=== PATIENT | female | born 1965 | race Caucasian/White ===

== ENCOUNTER → 2021-06-13 10:43 | Outpatient (CLI) | payer OTHER, SELFPAY ==
--- NOTE | ~2021-06-13 | DEXA_ITS ---
Bone Density Report Name: AVERY JOHNSON Age: 56 Sex: Female Ethnicity: White Date of : 1965 Indication: screening for osteoporosis; inflammatory bowel disease; asthma or emphysema; Referring Provider: ANGEL FAROOQ Study: Bone densitometry was performed. Exam Date: June 13, 2021 Accession number: [id number] Bone Density: Region BMD T-score Z-score Classification AP Spine (L1-L4) 0.946 -0.9 0.1 Normal Femoral Neck (Left) 0.670 -1.6 -0.6 Osteopenia Total Hip (Left) 0.893 -0.4 0.2 Normal Femoral Neck (Right) 0.631 -2.0 -1.0 Osteopenia Total Hip (Right) 0.822 -1.0 -0.4 Normal Total Hip Mean 0.858 -0.7 -0.1 Normal World Health Organization criteria for BMD impression classify patients as: Normal (T-score at or above -1.0), Osteopenia (T-score between -1.0 and -2.5), or Osteoporosis (T-score at or below -2.5). 10-year Fracture Risk: FRAX not reported because: Premenopausal woman Clinical Information Provided by Patient: Has used the following medications: Vitamin D Has the following medical conditions: Asthma or Emphysema, Inflammatory bowel diseases Patient maximum height was 62 No regular weight bearing exercise Drinks caffeinated beverages Onset of menses at age 18 Premenopausal Number of children 1 Impression: The patient's bone mass is within expected range for age, gender and ethnicity. Discussion: BONE DENSITY IS WITHIN EXPECTED LIMITS FOR AGE, SEX AND RACE. Bone density is within expected limits for age, sex and race at all sites measured. The patient should follow a healthful lifestyle (good nutrition with adequate calcium and vitamin D, and appropriate weight-bearing exercise). Follow-Up: Consider repeating this study in 2 to 3 years to reassess this patient's status, or sooner if there is some new clinical indication. Reported by: RAFAEL on 06/13/2021 11:02:00 AM. Reviewed, dictated and finalized at location ADante BESS
== END ==
PROVIDERS: Visit Provider Emergency Medicine
DX: Z78.0 Asymptomatic menopausal state (principal); M85.851 Other specified disorders of bone density and structure, right thigh; M85.852 Other specified disorders of bone density and structure, left thigh
CPT/HCPCS: 77080

== ENCOUNTER → 2021-08-10 11:05 | Outpatient (CLI) | payer OTHER, SELFPAY ==
--- NOTE | ~2021-08-10 | US_ITS ---
US abdomen complete EXAMINATION: US Abdomen Complete INDICATION: Liver disease. Abnormal liver enzymes. PROCEDURE: Realtime High Resolution abdomen ultrasound. COMPARISON: No prior studies for comparison FINDINGS: Gallbladder surgically absent. Common bile duct measures 5 mm. Liver echotexture is within normal limits. There is a 4.6 cm cyst. Pancreas within normal limits. Pa ncreatic tail is obscured by bowel gas. Spleen is unremarkeable. Renal echotexture is within normal limits bilaterally without hydronephrosis, contour deforming mass or renal stone. Right kidney measur es 8.7 cm. Left kidney measures 9 cm. Visualized aspects of the aorta are within normal limits. IVC not visualized. Portal vein is patent. IMPRESSION: 1: Liver cyst measuring 4.6 cm maximum dimension. Otherwise, unremarkable abdominal ultrasound. Reviewed, dictated and finalized at location B. IMPRESSION: 1: Liver cyst measuring 4.6 cm maximum dimension. Otherwise, unremarkable abdom inal ultrasound.
== END ==
PROVIDERS: PCP Emergency Medicine; Visit Provider Emergency Medicine
DX: K76.9 Liver disease, unspecified (principal)
CPT/HCPCS: 76700

== ENCOUNTER 2021-08-28 11:07 | Outpatient (CLI) | payer OTHER, SELFPAY ==
--- NOTE | 2021-09-03 20:31 | WPDSLEEPSTUD ---
Sleep Study Date of Study: 08/28/21 Ordering Provider: Lin Morgan MD Interpreting Physician: Lolis Correia DO Sleep Study Type: Split Polysomnogram Height: 1.55 m Weight: 80.286 kg Body Mass Index: 33.4 Neck Circumference (inches): 15 Ogema: 14 Reason for Sleep Study The patient has known DANIELLE and COPD. She had a recent nocturnal oximetry that showed an JAYY over 50 with desaturation down to 80%. Sleep History The patient is a 56-year-old female with COPD, asthma, IBS, osteoporosis and previously diagnosed sleep apnea that had a split study ordered by her drapery worker. The patient used to be on CPAP and supplemental oxygen but she is no longer using either. The patient denies being awakened from sleep due to shortness of breath. She occasionally awakens at night with heartburn, belching or cough. She frequently snores and it is constantly loud enough that others complain. She frequently has trouble sleeping when she has a cold. She denies waking up gasping for air throughout the night. She frequently has breathing problems at night observed by herself or others. She rarely sweats excessively at night. She denies having heart palpitations or irregular heart beats during the night. She frequently falls asleep during the day but never while driving. She denies cataplexy. She frequently has trouble at school or work due to sleepiness. She rarely feels unable to move when waking up or falling asleep. She occasionally has vivid dream like scenes upon awakening or falling asleep. She rarely has nightmares. She occasionally remembers her dreams. She rarely has thoughts racing through her mind. She rarely feels sad, depressed or anxious. She occasionally has muscular tension. She rarely notices parts of her body jerks. She rarely kicks during the night. She frequently has crawling aching feeling in her legs and occasionally has leg pain during the night. She denies grinding her teeth during sleep and awakening with morning jaw pain. She is frequently bothered by pain during the day and frequently awakened by pain during the night. She constantly wakes up feeling stiff in the morning and frequently wakes up with Sore a lucia muscles. She constantly wakes up with pain in the neck, spine and other joints. Is She goes to bed at 9:00 p.m. on weekdays and 11:00 p.m. on the weekends. It takes her 15-20 minutes to fall asleep. She wakes up twice throughout the night. She is able to fall back asleep within 20 minutes. She wakes up between 9 and 10:00 a.m. on weekdays and 10:00 a.m. on the weekend. She typically gets 7-10 hours of sleep per night. She will stay in bed for 5 minutes after waking up in the morning. She currently lives with her . She does not consume any caffeinated beverages within 2 hours of bedtime. She does not engage in physical exercise before bedtime. She will watch television before falling asleep. She does not take naps in the afternoon or the evening. She will drink 2 caffeinated beverages per day. She will drink 1 alcoholic beverage per day. She denies tobacco and recreational drug use. [facility] Past Medical History Medical History Arthritis Asthma IBS (irritable bowel syndrome) Left knee DJD Osteoporosis Right knee DJD Surgical History Surgical History Hx of section 1989 Social History Social History Substance use: never Gender identity (if verbalized by the patient): Female Medications Home Medications Medication Instructions Recorded Confirmed Type cetirizine 10 mg capsule 10 mg PO DAILY PRN 04/26/21 08/30/21 History montelukast 10 mg tablet 10 mg PO DAILY 04/26/21 08/30/21 History salmeterol 50 mcg/dose blister 1 inh INHALATION Q12H 04/26/21 08/30/21 History powder for inhalation
[2021-09-04 14:18] VITALS: BMI 33.4
== END 2021-08-29 07:06 | disposition home or self-care (01) ==
LOC: ANHCSM 11:08
PROVIDERS: PCP Emergency Medicine; Visit Provider Internal Medicine Critical Care Medicine
DX: G47.33 Obstructive sleep apnea (adult) (pediatric) (principal)
CPT/HCPCS: 95811

== ENCOUNTER 2022-02-15 12:24 | Outpatient (CLI) | payer OTHER, SELFPAY ==
--- NOTE | ~2022-02-15 | US_ITS ---
US thyroid INDICATION: Thyroiditis TECHNIQUE: Real-time sonographic images of the thyroid gland were obtained. COMPARISON: No prior studies for comparison. FINDINGS: The right thyroid lobe measures 4.9 x 1.7 x 1.3 cm. The left thyroid lobe measures 4.4 x 1 .5 x 1.3 cm. In the left lobe there is a solid hypoechoic, wider than tall smoothly marginated mass w ithout internal calcifications, measuring 10 x 8 x 5 mm, TR 4. No discrete masses are identified in t he right thyroid lobe. IMPRESSION: 1. Left thyroid mass measuring 1 cm maximum dimension, TR 4. Recommend follow-up ultrasound in 12 mo nths. Reviewed, dictated and finalized at location A. IMPRESSION: 1. Left thyroid mass measuring 1 cm maximum dimension, TR 4. Recommend follow- up ultrasound in 12 months.
== END 2022-02-15 12:25 | disposition home or self-care (01) ==
PROVIDERS: PCP Family Medicine; Visit Provider Family Medicine
DX: E06.3 Autoimmune thyroiditis (principal)
CPT/HCPCS: 76536

== ENCOUNTER 2022-02-28 09:19 | Outpatient (CLI) | payer OTHER, SELFPAY ==
--- NOTE | ~2022-02-28 | XR_ITS ---
MODIFIED ESOPHAGRAM HISTORY: Dysphagia. TECHNIQUE: Modified barium esophagram was performed on 02/28/2022. I administered fluoroscopy and perf ormed the exam with speech pathologist. Patient was seated for lateral fluoroscopic imaging for yohannes stion of thin liquids, pudding, solids and quantified amounts, followed by thin liquids in uncontroll ed amounts. This was recorded on tape. A single fluoroscopic spot image was also recorded. The DAP fo r this procedure was 1.14 Gycm2. The amount of fluoroscopy time used during this procedure was 1.5 mi nutes. FINDINGS: Oral stage: Adequate function. Pharyngeal stage: Adequate function. Cervical/esophageal stage: Adequate function. IMPRESSION: Patient tolerated regular consistency oral feedings in the upright position. Please asif elate with speech pathologist findings and specific feeding recommendations. Reviewed, dictated and finalized at location A. IMPRESSION: Patient tolerated regular consistency oral feedings in the upright position. Please correlate with speech pathologist findings and specific feedi ng recommendations.
--- NOTE | 2022-02-28 10:48 | REHSTMBS ---
Assessment and note entered by Lin Lugo, SAMPLE SAWYER Modified Barium Swallow Evaluation Feeding Type Recommended Oral Food Consistency Regular, Level 7 Liquid Consistency Thin (0) ST Clinical Summary Patient was seen for a Modified Barium Swallow study to assess her risk for aspiration. She reported that her flying ii instructor referred her for this study because she has lung issues and had just completed a test for her thyroid. Patient does report a history of GERD, and stated the main swallowing issue she has is swallowing chunks of ice cream (due to the thickness of the ice cream). Today the patient was presented with uncontrolled thin liquid per cup, semi-solid contrast medium per spoon, and cracker and fruit both coated with the semi-solid mixture. She exhibited the need to swallow each consistency two times to clear oral cavity however no significant pharyngeal issues were noted including no significant vallecular residue, no residue after both swallows were completed, and no risk for aspiration at the level of the airway entrance. Patient may remain on current diet. She was instructed to employ the following safe swallowing strategies: small bites and sips, multiple swallows, alternate solids with liquids, add moisture to dry foods such as adding gravy to dry meats. She was also instructed in the use of head flexion (chin tuck) to assist with movement of material through the pharynx. No additional Speech Therapy is indicated. Thank you for this referral.
== END 2022-02-28 09:20 | disposition home or self-care (01) ==
PROVIDERS: PCP Family Medicine; Visit Provider Internal Medicine Critical Care Medicine
DX: R13.10 Dysphagia, unspecified (principal); R06.02 Shortness of breath
CPT/HCPCS: 92611

== ENCOUNTER 2022-09-06 07:48 | Outpatient (CLI) | payer OTHER, SELFPAY ==
--- NOTE | 2022-09-08 11:23 | WPDPFTINT ---
PFT Procedure Performed PFT Procedure Performed Spirometry with Pre/Post Bronchodilator Plethysmography (Lung Vol) Diffusing Cap (DLCO) Flow Vol Loop PFT Interpretation DOS: 09/06/2022 REQUESTING: Lin Morgan MD REASON FOR TESTING: COPD PULMONARY FUNCTION TESTS Results are reliable and reproducible. Spirometry: pre bronchodilator FEV1 is 1.69 L, 71%, mildly reduced. Pre bronchodilator FVC is 2.22 L, 75%, mildly reduced. FEV1/ FVC ratio is 76%, normal. After bronchodilator, there is a 7% increase in the FEV1, 1.81 L, 76% predicted now in the normal range. There is a 1% increase in FVC, 2.24 L, 75%, still mildly reduced. FEF 25%- 75% is 1.36 L, lower limit of normal, 58%. After bronchodilator there is a 43% increase, 1.94 L, 83% predicted. This is significant. Lung volumes: Total lung capacity is 3.28 L, 71%, mild restriction. Residual volume is 0.93 L, 54%, below normal. RV/TLC is 28%, lower limit of normal. Airway resistance is 2.60, 156%. Diffusion: DLCO 19.4, 93%, normal. DLCO /VA is 6.74, 145%, above normal. Flow volume loop: Normal. IMPRESSION: This study shows a mild restrictive ventilatory impairment, more significant in the small airways with good response to bronchodilator in the small airways. Normal diffusion which over corrects for alveolar volume. Compared to an outside study on 07/13/2019, results are similar. She had a mild restrictive impairment. Lin Morgan MD
== END 2022-09-06 07:49 | disposition home or self-care (01) ==
PROVIDERS: PCP Family Medicine; Visit Provider Internal Medicine Critical Care Medicine
DX: J44.9 Chronic obstructive pulmonary disease, unspecified (principal)
CPT/HCPCS: 94060; 94726; 94729

== ENCOUNTER 2022-10-08 09:34 | Outpatient (CLI) | payer OTHER, SELFPAY ==
[2022-10-08 10:11] LABS: Basophils Absolute Auto 0.1 K/mm3 (0.0-0.1); Basophils Percent Auto 1.3 % (0.2-1.2); Eosinophils Absolute Auto 0.3 K/mm3 (0-0.3); Eosinophils Percent Auto 3.7 % (0-4.4); Hematocrit 43.9 % (37.0-47.0); Hemoglobin 14.1 g/dL (12.0-15.0); Immature Granulocyte Absolute 0.02 K/mm3 (0.00-0.031); Immature Granulocyte Percent A 0.3 % (0-0.5); Lymphocytes Absolute Auto 1.96 K/mm3 (0.9-3.2); Lymphocytes Percent Auto 29.2 % (18.3-44.2); Mean Corpuscular HGB Conc 32.1 g/dl (32-36); Mean Corpuscular Hemoglobin 30.5 pg (26-34); Mean Corpuscular Volume 94.8 fl (80-100); Mean Platelet Volume 8.4 fl (7.4-10.4); Monocytes Absolute Auto 0.7 K/mm3 (0.1-0.6); Monocytes Percent Auto 9.8 % (2.6-8.5); Neutrophils Absolute Auto 3.7 K/mm3 (1.3-6.7); Neutrophils Percent Auto 55.7 % (45.5-73.1); Platelet Count Result 339 k/mm3 (150-375); Red Blood Count 4.63 M/mm3 (4.2-5.4); Red Cell Distribution Width 13.2 % (11.5-14.5); White Blood Count 6.7 K/mm3 (4.5-10.0)
[2022-10-08 10:19] LABS: Anion Gap 4 mmol/L (8-16); Blood Urea Nitrogen 14 mg/dL (7-17); Calcium 9.1 mg/dL (8.4-10.2); Carbon Dioxide 34 mmol/L (22-30); Chloride 102 mmol/L (98-107); Estimated Glomerular Filt Rate > 60; Glucose 99 mg/dL (65-110); Potassium 3.8 mmol/L (3.4-5.0); Sodium 140 mmol/L (137-145)
[2022-10-08 10:20] LABS: Appearance Urine Clear (Clear); Bacteria Urine None Seen /hpf; Bilirubin Urine Negative (Negative); Blood Urine 1+ (Negative); Color Urine Yellow (Yellow); Glucose Urine UA Negative (Negative); Ketones Urine Negative (Negative); Leukocyte Esterase Ur Trace LEU/UL (Negative); Nitrate Urine Negative (Negative); Non Pathogenic Casts 0-2; Protein Urine Negative (Negative); Specific Grav Ur 1.013 (1.001-1.035); Squamous Epithelial Cell Urine Occasional /hpf (Few); Urobilinogen Urine 0.2 mg/dL (<2.0); WBC Urine 0-5 /hpf
--- NOTE | 2022-10-08 10:21 | ECG_ITS ---
Measurements Intervals Buena Rate: 76 P: 51 MI: 166 QRS: 28 QRSD: 102 T: 38 QT: 382 QTc: 430 Interpretive Statements SINUS RHYTHM POSSIBLE LEFT ATRIAL ENLARGEMENT BASELINE WANDER- I, II, III, AVF BORDERLINE ECG NO PREVIOUS ECG AVAILABLE FOR COMPARISON Electronically Signed On 10-08-2022 10:48:09 CDT by Jay Kitchen D.O.
[2022-10-08 11:05] LABS: Add Urine Microscopic? YES
== END 2022-10-08 09:35 | disposition home or self-care (01) ==
LOC: ANHLAB 09:36
PROVIDERS: PCP Family Medicine; Visit Provider Orthopaedic Surgery
DX: M17.11 Unilateral primary osteoarthritis, right knee (principal); J44.9 Chronic obstructive pulmonary disease, unspecified; I10 Essential (primary) hypertension; R94.31 Abnormal electrocardiogram [ECG] [EKG]
CPT/HCPCS: 36415; 80048; 81001; 85025; 93005

== ENCOUNTER → 2022-11-27 10:21 | Outpatient (CLI) | payer OTHER, SELFPAY ==
--- NOTE | ~2022-11-27 | MM_ITS ---
EXAMINATION: MM screening mounika BI w azucena HISTORY: Screening mammogram TECHNIQUE: Craniocaudal and mediolateral oblique 3-D tomosynthesis images were obtained and synthetic 2-D images were generated. CAD analysis was submitted and interpreted. COMPARISON: No prior mammogram is available for comparison at this institution. BREAST PARENCHYMAL COMPOSITION: There are scattered areas of fibroglandular density. FINDINGS: RIGHT BREAST: There is focal asymmetry in the middle third of the upper outer quadrant of the breast. . LEFT BREAST: No suspicious mass, calcification, or architectural distortion are identified to suggest malignancy. IMPRESSION: 1. Right breast focal asymmetry which may represent the patient's baseline however no comparison is c urrently available. 2. Comparison with prior mammograms is necessary. BI-RADS Category 0: Incomplete: Needs comparison with prior mammograms. Reviewed, dictated and finalized at location A. IMPRESSION: 1. Right breast focal asymmetry which may represent the patient's baseline baird manjit no comparison is currently available. 2. Comparison with prior mammograms is necessary. BI-RADS Category 0: Incomplete: Needs comparison with prior mammograms.
== END ==
PROVIDERS: PCP Obstetrics & Gynecology; Visit Provider Nurse Practitioner
DX: Z12.31 Encounter for screening mammogram for malignant neoplasm of breast (principal); R92.8 Other abnormal and inconclusive findings on diagnostic imaging of breast
CPT/HCPCS: 77063; 77067

== ENCOUNTER 2023-01-08 07:19 | Outpatient (CLI) | payer OTHER, SELFPAY ==
[2023-01-08 08:54] LABS: Basophils Absolute Auto 0.1 K/mm3 (0.0-0.1); Basophils Percent Auto 1.3 % (0.2-1.2); Eosinophils Absolute Auto 0.2 K/mm3 (0-0.3); Eosinophils Percent Auto 2.1 % (0-4.4); Hematocrit 43.8 % (37.0-47.0); Hemoglobin 14.2 g/dL (12.0-15.0); Immature Granulocyte Absolute 0.04 K/mm3 (0.00-0.031); Immature Granulocyte Percent A 0.4 % (0-0.5); Lymphocytes Absolute Auto 2.09 K/mm3 (0.9-3.2); Lymphocytes Percent Auto 22.4 % (18.3-44.2); Mean Corpuscular HGB Conc 32.4 g/dl (32-36); Mean Corpuscular Hemoglobin 31.1 pg (26-34); Mean Corpuscular Volume 96.1 fl (80-100); Mean Platelet Volume 8.3 fl (7.4-10.4); Monocytes Absolute Auto 0.9 K/mm3 (0.1-0.6); Neutrophils Percent Auto 63.8 % (45.5-73.1); Platelet Count Result 356 k/mm3 (150-375); Red Blood Count 4.56 M/mm3 (4.2-5.4); White Blood Count 9.3 K/mm3 (4.5-10.0)
[2023-01-08 08:59] LABS: Appearance Urine Clear (Clear); Bilirubin Urine Negative (Negative); Blood Urine Negative (Negative); Color Urine Dark Yellow (Yellow); Glucose Urine UA Negative (Negative); Ketones Urine Negative (Negative); Leukocyte Esterase Ur Negative LEU/UL (Negative); Nitrate Urine Negative (Negative); Protein Urine Negative (Negative); Specific Grav Ur 1.019 (1.001-1.035); Urobilinogen Urine 0.2 mg/dL (<2.0)
[2023-01-08 09:05] LABS: INR 0.9; Prothrombin Time 12.9 Seconds (11.1-14.7)
[2023-01-08 09:06] LABS: Partial Thromboplastin Time 27.6 SECONDS (22.3-36.8); Urine Cotinine NEGATIVE
[2023-01-08 09:11] LABS: Albumin Level 4.5 g/dL (3.5-5.1); Anion Gap 9 mmol/L (8-16); Blood Urea Nitrogen 14 mg/dL (7-17); Calcium 9.6 mg/dL (8.4-10.2); Carbon Dioxide 32 mmol/L (22-30); Chloride 100 mmol/L (98-107); Estimated Glomerular Filt Rate > 60; Glucose 102 mg/dL (65-110); Potassium 4.6 mmol/L (3.4-5.0); Sodium 141 mmol/L (137-145)
[2023-01-08 09:16] LABS: Hemoglobin A1C 5.3 % (<5.7)
[2023-01-08 09:30] LABS: Add Urine Microscopic? NO
== END 2023-01-08 07:20 | disposition home or self-care (01) ==
LOC: ANHSURGERY 07:24
PROVIDERS: PCP Family Medicine; Visit Provider Orthopaedic Surgery
DX: Z01.812 Encounter for preprocedural laboratory examination (principal); M17.11 Unilateral primary osteoarthritis, right knee
CPT/HCPCS: 80048; 80307; 81003; 82040; 83036; 85025; 85610; 85730; 87081

== ENCOUNTER 2023-01-22 01:10 | Day surgery (SDC) | payer OTHER, SELFPAY ==
--- NOTE | 2023-01-08 07:25 | PC.NURSE ---
PRE-OP INSTRUCTIONS, PLEASE READ CAREFULLY Report to the Outpatient Waiting Room, entrance under the green pavilion located off [facility], at time _0830_ on date _01/22/23_. Planned Procedure Time: _1030_. PACK A SMALL OVERNIGHT BAG AND LEAVE IN THE CAR ALONG WITH YOUR WALKER Time changes happen often and if your time is changed the preop area will call you the afternoon before. - You and your visitor will be asked to self-screen and do not enter if you have any COVID symptoms. - A mask is optional within the hospital at this time. -VISITING HOURS 8AM-8PM Patients may have clear liquids (water, carbonated beverages, clear teas, apple juice) until 3 hours prior to surgery (0730AM) with a maximum of 20 ounces. - No food from midnight until time of surgery Take the following medications with a SIP of water the morning of surgery: _NONE_ DO NOT STOP ANY OF YOUR OTHER PRESCRIPTION MEDICATIONS PRIOR TO SURGERY ?EXCEPT THE FOLLOWING Medications to discontinue per ANESTHESIA - _MULTIVITAMIN, PROBIOTIC AND SUPPLEMENTS 3 DAYS PRIOR TO SURGERY, Date to take last dose 01/18/23_ Please no make-up, nail sudanese, hairspray, perfume, deodorant, or body powder the day of surgery. No jewelry (including any body piercings) or valuables the day of surgery, leave them at home. Please take a shower or bath the night before, or the morning of, surgery with an antibacterial soap. Wear comfortable, loose fitting clothing. Children are encouraged to wear pajamas. - Jewelry must be removed prior to entering the operating room. Rings and piercings that are not removed may be cut off. - The hospital will not accept responsibility for valuables. - Please leave all valuables, including medications, at home the day of surgery. If you are going home after surgery, a licensed hazmat tanker driver must drive you home. - NO public transportation without another adult if you receive anesthesia. - We recommend that an adult stay with you for 24 hours following discharge. - We also recommend that you do not drive, make important decision, drink alcoholic beverages, or take any drugs that were not prescribed by your health care provider for at least 24 hours after your discharge time. Follow any additional instructions given to you from your surgeon. If you or anyone in your household have experienced Covid symptoms in the past week, please notify your surgeon or the nurse liaison at the phone number below for possible testing. Instructions given to _PATIENT_and asked if any additional questions and then verbalized understanding. Patient advised to call surgeon office or pre surgery nurse liaison [phone] if any additional questions.
[2023-01-08 08:02] VITALS: BP 146/86; PULSE 76; RESP 18; TEMP 36.9; O2SAT 98; BMI 35.1
[2023-01-22] VITALS (14 sets, daily range): BP systolic 110–135; BP diastolic 56–76; PULSE 69–94; RESP 12–20; TEMP 36.1–37.1; O2SAT 91–99
--- NOTE | ~2023-01-22 | XR_ITS ---
EXAMINATION: [id number] DATE: 01/22/2023 13:46 INDICATION: Postoperative evaluation following right total knee arthroplasty. TECHNIQUE: Anteroposterior and lateral views of the right knee were obtained. COMPARISON: 10/03/2022 FINDINGS: Right total knee arthroplasty without patellar resurfacing appears well seated and in near anatomic a lignment. No fractures identified. Skin brooke anterior to the knee. Expected postoperative subcuta neous and intra-articular gas. IMPRESSION: 1. Right total knee arthroplasty, negative for postoperative purposes. Reviewed, dictated and finalized at location A.
--- NOTE | 2023-01-22 07:23 | WPDHPUPDATE1 ---
History and Physical Update Update Date/Time: 01/22/23 07:23 History and Physical has been reviewed, including an updated exam of the patient. There are NO changes in the patient's condition. Risks, benefits, and alternatives have been discussed and questions answered. Patient agrees to proceed with procedure.
[2023-01-22] MEDS: ACETAMINOPHEN 500 MG TABLET 1000 MG PO (09:01)
[2023-01-22] MEDS: LACTATED RINGERS 1,000 ML 30 ML IV CONT ×2 (09:05→13:35)
--- NOTE | 2023-01-22 09:22 | WPDANESEPPF ---
Anes - Initial Pre Proc Eval Procedure: Operation Date: 01/22/23 10:30 Proposed Procedures p Right Total Knee Arthroplasty - Ricky Mclaughlin MD Date/Time: 01/22/23 09:22 Surgeon: Ricky Mclaughlin MD Pre Op Diagnosis: Rt Knee DJD Patient Data Age: 57 Gender: F Height: 1.57 m Weight: 86.4 kg Last Vital Signs Temp 36.9 C 01/08/23 08:02 Pulse 76 01/08/23 08:02 Resp 18 01/08/23 08:02 BP 146/86 H 01/08/23 08:02 Pulse Ox 98 01/08/23 08:02 O2 Del Method Room Air 01/08/23 08:02 Allergies Allergy/AdvReac Type Severity Reaction Status Date / Time No Known Allergies Allergy Verified 01/22/23 08:47 Home Medications Medication Instructions Recorded Confirmed Type calcium carbonate 400 mg calcium 1,200 mg PO DAILY 08/02/21 01/22/23 History (1,000 mg) chewable tablet cetirizine 10 mg capsule (Zyrtec) 10 mg PO DAILY PRN allergy 06/13/22 01/22/23 Rx symptoms #90 caps levocetirizine 5 mg tablet (Xyzal) 5 mg PO DAILY 08/20/22 01/22/23 History Centrum Silver Ultra Women's 2 gummy DAILY 01/08/23 01/22/23 History Focus Factor - Memory 1 tab-cap DAILY 01/08/23 01/22/23 History Probiotic 1 tab-cap DAILY 01/08/23 01/22/23 History Shiff Digestive 2 gummy DAILY 01/08/23 01/22/23 History ascorbic acid (vitamin C) 500 mg 500 mg PO DAILY 01/08/23 01/22/23 History tablet (Vitamin C) cholecalciferol (vitamin D3) 125 125 mcg PO DAILY 01/08/23 01/22/23 History mcg (5,000 unit) tablet chondroitin sulfate A sodium 400 1,200 mg PO DAILY 01/08/23 01/22/23 History mg capsule cyanocobalamin (vitamin B-12) 1 cap DAILY 01/08/23 01/22/23 History garlic 1,000 mg capsule 1,000 mg PO DAILY 01/08/23 01/22/23 History ginkgo biloba 120 mg tablet 120 mg PO DAILY 01/08/23 01/22/23 History ginkgo biloba leaf extract 120 1 tablet PO DAILY 01/08/23 01/22/23 History mg-choline bitartrate 110 mg tablet ([facility]) glucosamine sulfate 750 mg tablet 1,500 mg PO DAILY 01/08/23 01/22/23 History magnesium 200 mg tablet 200 mg PO DAILY 01/08/23 01/22/23 History tumeric 100 mg-rao 150 mg-olive 1 cap PO DAILY 01/08/23 01/22/23 History 50 mg-oreg 150 mg-caprylate capsule chlorhexidine gluconate 4 % 1 applic topical DAILY #237 mL 01/10/23 01/22/23 Rx topical liquid (Hibiclens) Patient hx anesthesia problems: none Family hx anesthesia problems: none Results Review: All pre-operative results and documents have been reviewed as part of the pre-operative evaluation. [facility] Past Medical History Medical History (Updated 01/22/23 @ 09:22 by Dannie Mccoy DO) Arthritis Asthma Asthma-COPD overlap syndrome COPD (chronic obstructive pulmonary disease) IBS (irritable bowel syndrome) Left knee DJD Osteoporosis Right knee DJD Sleep apnea Surgical History Surgical History History of cholecystectomy Hx of section 1989 Normal thoracoscopy s/p VATS for biopsy Social History Social History Smoking status: Never smoker Second hand tobacco smoke exposure: Yes ( A CHILD) Additional smoking assessment comments: PT DENIES ALL FORMS OF TOBACCO USE Alcohol intake: current Drinks per week: 2 Substance use: never Substance use type: does not use Living arrangements: with family Occupation/Education: unemployed Gender identity (if verbalized by the patient): Female Sexual Orientation (if Verbalized by the Patient): Straight or Heterosexual Spiritual care concerns: No Anes - Eval Final PreProcedure Day of Procedure 01/22/23 09:22 Patient weight: obese Heart: regular rate and rhythm Lungs: clear to auscultation Airway: Mallampati scale class II Neurological: alert and oriented Last oral intake: >/= 8 hours ASA classification: III Emergent: no Anesthetic plan: proceed Anesthesia type and monitoring: general LMA and standard mo
--- NOTE | 2023-01-22 09:57 | WPDANESPNB ---
Anes - Peripheral Nerve Block Date/Time: 01/22/23 09:57 I have discussed with the patient/family/POA the placement of a peripheral nerve block for post-operative pain management, including associated risks, benefits, complications, and side effects. Alternative methods of post-operative analgesia were detailed. Questions were solicited and answers provided to the satisfaction of the patient/family/POA. Time-Out: A pre-procedural Time-Out was completed immediately before starting the procedure and confirmed: Patient Identification, Site, Procedure, Patient Position and the Availability of Requisite Equipment. Clinical Indications: Acute post-operative pain management requested by the operative surgeon. Nerve Block Insertion Note Anes-nerve block: adductor canal right Patient position: supine Skin prep: chlorhexidine Needle: 22 gauge, stimulating, insulated echogenic needle. Needle length: 80 mm Technique: ultrasound Injectate: bupivacaine 0.5% with epi 5 mcg/ml (30cc - no epi) Observations: tolerated well Complications: none Procedure start time:: 1030 Procedure end time:: 1034
--- NOTE | 2023-01-22 10:09 | SUR.PREOP ---
1000-report given to Benja Pulido RN.
[2023-01-22] MEDS: TRANEXAMIC ACID 1,000MG/ISO100 1,000 MG/100 ML BAG 200 MG IVPB (10:27)
[2023-01-22] MEDS: ceFAZolin 2 GM/D5W 50 ML 2 GM/50 ML BAG IVPB ×2 (10:45→18:12)
[2023-01-22] MEDS: TRANEXAMIC ACID 1,000 MG/10 ML AMPUL 1000 MG IV PUSH (12:28)
[2023-01-22] MEDS: VANCOMYCIN HCL 1,000 MG VIAL 1000 MG TOPICAL (12:29)
--- NOTE | 2023-01-22 13:39 | W.PM.PROC2 ---
Procedure Note - Detailed Date of Procedure 01/22/23 Pre-op Diagnosis Rt Knee DJD Post-op Diagnosis Same Procedure Performed R TKA Surgeon Ricky Mclaughlin MD Anesthesia General Description of Procedure THE RIGHT KNEE WAS PREPPED AND DRAPED IN THE STERILE FASHION. A MIDLINE SKIN INCISION WAS MADE. A MEDIAL PARAPATELLAR ARTHROTOMY WAS MADE. THE PATELLA WAS EVERTED. THERE WAS TRICOMPARTMENT DJD. THERE WAS MINIMAL PATELLA DJD. AN INTRAMEDULLARY KELECHI WAS PLACED IN THE FEMUR. A DISTAL FEMORAL CUT WAS MADE IN 5 DEGREES OF VALGUS REMOVING APPROXIMATELY 9 MM OF BONE FROM THE DISTAL FEMUR. THE FEMUR WAS SIZED TO 60. A 60 FEMORAL CUTTING BLOCK WAS PLACED IN 3 DEGREES OF EXTERNAL ROTATION AND IN ALIGNMENT WITH DANITA'S LINE AND THE TRANSEPICONDYLAR AXIS. ANTERIOR POSTERIOR AND CHAMFER CUTS WERE MADE. THE CUTS WERE EXCELLENT. NEXT AN INTRAMEDULLARY CUTTING GUIDE WAS PLACED IN THE TIBIA. A TRANS TIBIAL CUT WAS MADE ALONG THE LONG AXIS OF THE TIBIA. APPROXIMATELY 10 MM OF BONE WAS REMOVED FROM THE HIGH SIDE OF THE TIBIA. THE TIBIA WAS THEN PLANED TO A SMOOTH SURFACE. POSTERIOR FEMORAL OSTEOPHYTES WERE REMOVED FROM THE FEMORAL CONDYLES. A 63 TIBIAL TRIAL WAS PLACED IN ALIGNMENT WITH THE 1/3 MEDIAL ASPECT OF THE TIBIAL TUBERCLE. THEN A 60 FEMORAL TRIAL COMPONENT WAS PLACED. BOTH HAD EXCELLENT FITS. EVENTUALLY A 10 MM CR POLYETHYLENE TRIAL COMPONENT WAS PLACED. THE KNEE WAS TAKEN THROUGH A RANGE OF MOTION. THE KNEE CAME OUT TO FULL EXTENSION. THERE WAS NO ABNORMAL TILT TO THE PATELLA. THERE WAS GOOD A/P AND VARUS/VALGUS STABILITY. THERE WAS NO EXCESSIVE ROLL BACK WITH FLEXION. THE TRIAL COMPONENTS WERE REMOVED. THEN A 60 FEMORAL COMPONENT AND 63 TIBIAL COMPONENT WITH A 10 CR POLYETHYLENE COMPONENT WERE CEMENTED INTO PLACE. ONCE THE CEMENT WAS HARD THE KNEE WAS TAKEN THROUGH A ROM AGAIN AND FOUND TO BE STABLE WITH NO PATELLA TILT NO EXCESSIVE ROLL BACK WITH FLEXION AND GOOD STABILITY WITH COMPLETE AND FULL EXTENSION. THE KNEE WAS IRRIGATED WITH STERILE BETADINE AND WATER FOR ABOUT 3 MINUTES. THE BLEEDERS WERE CAUTERIZED. THE ARTHROTOMY WAS REPAIRED WITH NUMBER 1 VICRYL. THE SUB CUTANEOUS LAYER WITH 2-0 VICRYL AND THE SKIN WITH BRAD. THE WOUND WAS WASHED AND A STERILE DRESSING WAS APPLIED. PATIENT WAS EXTUBATED. Estimated Blood Loss -150.0 Pathology None sent Complications No immediate complications Condition Stable Disposition PACU
[2023-01-22] MEDS: fentaNYL CITRATE INJ (*CRX) 100 MCG/2 ML VIAL 25 MCG IV PUSH ×4 (13:58→14:20)
--- NOTE | 2023-01-22 15:40 | ADMGEN ---
This patient, Sierra Scott, was admitted to Medical Room 241-01. Patient/family oriented to hospital policies and general routines including ID bracelet, bed and alarms, visiting hours, pain management, procedures, bathroom and other care routines, personal items, smoking policy, room service/diet, and visiting hours. Information on how to activate the Rapid Response Team has been discussed. Patient/Family are encouraged to report perceived risks to care and to ask questions if they do not understand what they are told or what they should do.
[2023-01-22] MEDS: SODIUM CHLORIDE 0.9% IV 1,000 ML 125 ML IV CONT (15:53)
[2023-01-22] MEDS: oxyCODONE/ACETAMINOPHEN (*CRX) 5-325 MG TABLET 2 TABLET PO ×2 (15:54→21:47)
[2023-01-22] MEDS: SENNA/DOCUSATE SODIUM TABLET 2 TAB PO (18:05)
[2023-01-22] MEDS: KETOROLAC 15 MG/ML VIAL (*BKC) IV PUSH (18:09)
[2023-01-22] MEDS: ASPIRIN 325 MG ENTERIC TABLET PO (21:48)
[2023-01-22] MEDS: FAMOTIDINE 20 MG TABLET PO (21:48)
--- NOTE | 2023-01-22 22:00 | PC.NURSE ---
This nurse attempted to get pt to sit up in a chair for 30 mins. pt stated she sat up at the side of the bed for the duration of her dinner. pt is using the kofi steady to go to the bathroom. pt states she is feeling much better.
[2023-01-23 00:33] VITALS: BP 122/64; PULSE 76; RESP 17; TEMP 36.5; O2SAT 100
[2023-01-23] MEDS: KETOROLAC 15 MG/ML VIAL (*BKC) IV PUSH ×3 (00:37→12:24)
[2023-01-23 02:46] VITALS: RESP 17; O2SAT 95
[2023-01-23] MEDS: ceFAZolin 2 GM/D5W 50 ML 2 GM/50 ML BAG IVPB ×2 (03:01→12:23)
[2023-01-23 04:41] VITALS: BP 118/55; PULSE 77; RESP 18; TEMP 36.7; O2SAT 100
[2023-01-23 05:41] LABS: Basophils Percent Auto 0.3 % (0.2-1.2); Eosinophils Percent Auto 0.2 % (0-4.4); Hematocrit 34.1 % (37.0-47.0); Immature Granulocyte Absolute 0.08 K/mm3 (0.00-0.031); Immature Granulocyte Percent A 0.6 % (0-0.5); Lymphocytes Absolute Auto 1.32 K/mm3 (0.9-3.2); Lymphocytes Percent Auto 9.7 % (18.3-44.2); Mean Corpuscular HGB Conc 32.3 g/dl (32-36); Mean Corpuscular Hemoglobin 31.3 pg (26-34); Mean Corpuscular Volume 97.2 fl (80-100); Mean Platelet Volume 8.7 fl (7.4-10.4); Monocytes Absolute Auto 1.5 K/mm3 (0.1-0.6); Monocytes Percent Auto 11.2 % (2.6-8.5); Neutrophils Absolute Auto 10.6 K/mm3 (1.3-6.7); Platelet Count Result 258 k/mm3 (150-375); Red Blood Count 3.51 M/mm3 (4.2-5.4); Red Cell Distribution Width 12.7 % (11.5-14.5); White Blood Count 13.5 K/mm3 (4.5-10.0)
[2023-01-23 06:00] LABS: Potassium 4.2 mmol/L (3.4-5.0)
--- NOTE | 2023-01-23 06:00 | PC.NURSE ---
Documentation for night 01/22 by Jimbo Villatoro reviewed by this nurse
[2023-01-23 06:16] LABS: Anion Gap 4 mmol/L (8-16); Blood Urea Nitrogen 10 mg/dL (7-17); Calcium 8.1 mg/dL (8.4-10.2); Carbon Dioxide 29 mmol/L (22-30); Chloride 104 mmol/L (98-107); Estimated CRCL calculation 70 ml/min; Estimated Glomerular Filt Rate > 60; Glucose 107 mg/dL (65-110); Sodium 137 mmol/L (137-145)
[2023-01-23] MEDS: ASPIRIN 325 MG ENTERIC TABLET PO (08:28)
[2023-01-23] MEDS: ASCORBIC ACID 500 MG TABLET PO (08:28)
[2023-01-23] MEDS: SENNA/DOCUSATE SODIUM TABLET 2 TAB PO ×2 (08:28→16:49)
[2023-01-23] MEDS: LORATADINE 10 MG TABLET PO (08:28)
[2023-01-23] MEDS: FAMOTIDINE 20 MG TABLET PO (08:28)
[2023-01-23] MEDS: oxyCODONE/ACETAMINOPHEN (*CRX) 5-325 MG TABLET 2 TABLET PO ×2 (08:28→16:48)
--- NOTE | 2023-01-23 10:31 | P.PNAN_ITS ---
Anes - Prog Note Post-Op Date/Time: 01/23/23 10:31 Cardiovascular status: normal Respiratory status: normal Airway patency: baseline Mental status: baseline Post-Op hydration status: normal Vital Signs: Last Vital Signs Temp 36.7 C 01/23/23 04:41 Pulse 77 01/23/23 04:41 Resp 18 01/23/23 04:41 BP 118/55 L 01/23/23 04:41 Pulse Ox 100 01/23/23 04:41 O2 Del Method Room Air 01/23/23 08:21 O2 Flow Rate 3 01/22/23 14:50 Pain Score (VAS): 08/02 I/O: Intake & Output 01/22/23 01/23/23 01/23/23 23:59 07:59 15:59 Intake Total 520 500 240 Output Total 500 Balance 520 0 240 Laboratory Tests 01/23/23 05:04 01/23/23 05:04 01/22/23 01/23/23 10:03 05:04 WBC 13.5 H RBC 3.51 L Hgb 11.0 L D Hct 34.1 L MCV 97.2 MCH 31.3 MCHC 32.3 RDW 12.7 Plt Count 258 MPV 8.7 Immature Gran % (Auto) 0.6 H Neut % (Auto) 78.0 H Lymph % (Auto) 9.7 L [place] % (Auto) 11.2 H Eos % (Auto) 0.2 Baso % (Auto) 0.3 Lymph # (Auto) 1.32 [place] # (Auto) 1.5 H Eos # (Auto) 0.0 Baso # (Auto) 0.0 Abs Immat Gran (auto) 0.08 H Absolute Neuts (auto) 10.6 H Absolute Nucleated RBC 0.0 Nucleated RBC % 0.0 Sodium 137 Potassium 4.2 Chloride 104 Carbon Dioxide 29 Anion Gap 4 L BUN 10 Creatinine 0.80 Estim Creat Clear Calc 70 Estimated GFR > 60 Glucose 107 Calcium 8.1 L Blood Type O Positive Antibody Screen Negative Post-procedural complaints: none Patient Feedback: Patient satisfied with anesthetic care.
[2023-01-23 10:38] VITALS: BP 138/104; PULSE 98; RESP 18; TEMP 36.4; O2SAT 100
[2023-01-23 11:02] VITALS: BP 122/68
[2023-01-23] MEDS: CHOLECALCIFEROL 1,000 UNITS TABLET 5000 UNITS PO (11:07)
[2023-01-23 14:45] VITALS: BP 110/61; PULSE 94; RESP 14; TEMP 36.5; O2SAT 99
--- NOTE | 2023-01-23 16:13 | PM.DS ---
DS: Admitting Diagnosis Discharge Date 01/23/23 Admitting Diagnosis right knee djd DS: Discharge Diagnosis Discharge Diagnosis (1) Right knee DJD: Qualifiers: Osteoarthritis type: primary Qualified Code(s): M17.11 - Unilateral primary osteoarthritis, right knee Code(s): M17.11 - Unilateral primary osteoarthritis, right knee Status: Acute Assessment and Plan: POD 1 DOING WELL. OK TO DC HOME F/U IN 3 WEEKS (2) DJD (degenerative joint disease) of knee: Qualifiers: Osteoarthritis type: primary Laterality: bilateral Qualified Code(s): M17.0 - Bilateral primary osteoarthritis of knee Code(s): M17.10 - Unilateral primary osteoarthritis, unspecified knee Status: Acute DS: Summary Hospital Course Reason for hospitalization: R TKA Hospital Course: PATIENT WAS ADMITTED S/P TOTAL KNEE ARTHROPLASTY FOR POSTOPERATIVE MEDICAL MANAGEMENT, PAIN CONTROL AND MOBILIZATION WITH PHYSICAL AND OCCUPATIONAL THERAPY. THE PATIENT PROGRESSED WELL WITH PT/OT. LABS AND VITALS REMAINED STABLE AND PAIN WELL CONTROLLED. THE PATIENT HAS BEEN CLEARED TO BE DISCHARGED HOME. FOLLOW UP APPOINTMENT SCHEDULED. DISCHARGE INSTRUCTIONS DISCUSSED AT LENGTH WITH THE PATIENT. MEDICATIONS REVIEWED. Status at Discharge Cognitive/behavioral status at discharge: STABLE Time Spent with Patient Time attestation: Total time spent providing and/or coordinating discharge services: Exam Extrem: Other: VSS AFEBRILE DRESSING DRY NV INTACT NEG HOMANS SIGN CALF SOFT NON TENDER DS: Data Data Completed and Pending Labs on day of discharge: Labs from last 24 hours 01/23/23 05:04 WBC 13.5 H RBC 3.51 L Hgb 11.0 L D Hct 34.1 L MCV 97.2 MCH 31.3 MCHC 32.3 RDW 12.7 Plt Count 258 MPV 8.7 Immature Gran % (Auto) 0.6 H Neut % (Auto) 78.0 H Lymph % (Auto) 9.7 L [place] % (Auto) 11.2 H Eos % (Auto) 0.2 Baso % (Auto) 0.3 Lymph # (Auto) 1.32 [place] # (Auto) 1.5 H Eos # (Auto) 0.0 Baso # (Auto) 0.0 Abs Immat Gran (auto) 0.08 H Absolute Neuts (auto) 10.6 H Absolute Nucleated RBC 0.0 Nucleated RBC % 0.0 Sodium 137 Potassium 4.2 Chloride 104 Carbon Dioxide 29 Anion Gap 4 L BUN 10 Creatinine 0.80 Estim Creat Clear Calc 70 Estimated GFR > 60 Glucose 107 Calcium 8.1 L Procedures/Treatments: R TKA Discharge Plan Discharge Patient Disposition: Home Health Service Discharge Instructions: Per Care Coordination: [facility] will call to schedule visits for RN/PT/OT. [phone]. Post Op Total Knee Replacement Instructions Dr. Ricky Mclaughlin [phone] Your dressing will be changed prior to your discharge. You will be sent home with one additional dressing to be changed on post op day 7 by the home health RN. Your brooke will be removed on the 14th day after surgery and steri-strips will be placed. Please practice good hand hygiene and do not touch your incision in order to prevent infection. You may shower with your dressing but do not submerge in a bath tub. Do not drive or operate machinery until you are released by Dr. Mclaughlin. Do not walk without a walker for any reason until you are released by Dr. Mclaughlin. Continue to use your ice machine. Please use a towel or pillow case to protect your skin before applying your ice machine. Do NOT place a pillow under your knee. You may use a pillow from the calf down if needed. This will prevent a flexion contracture postoperatively. You may begin use of your CPM machine at home if you have been given one pre-operatively. DO NOT USE WHILE YOU ARE SLEEPING. Your first post op appointment was sent to you via mail preoperatively and is also again listed below in your discharge instructions. If you have any questions or are unable to make your appointment, please contact our office for scheduling questions. Your medications have been sent to your pharmacy. You have been sent home with pain medication. Please pi
== END 2023-01-23 17:45 | disposition home health service (06) ==
LOC: ANHSURGERY 08:35 → ANH2MED 15:02
PROVIDERS: PCP Family Medicine; Visit Provider Orthopaedic Surgery
PROC: (CPT 27447; principal; 2023-01-22 10:30)
DX: M17.11 Unilateral primary osteoarthritis, right knee (principal); G89.18 Other acute postprocedural pain; J44.9 Chronic obstructive pulmonary disease, unspecified; M81.0 Age-related osteoporosis without current pathological fracture; G47.30 Sleep apnea, unspecified; E66.9 Obesity, unspecified; Z68.34 Body mass index [BMI] 34.0-34.9, adult
CPT/HCPCS: 27447; 64447; 36415; 73560; 80048; 85025; 86850; 86900; 86901; 97110; 97116; 97161; 97165; 97530; 97535; A9270; C1713; C1776; J0171; J0690; J1100; J1170; J1885; J2250; J2270; J2371; J2405; J2704; J2795; J3010; J3370; J7030; J7120

== ENCOUNTER 2023-03-14 13:33 | Outpatient (CLI) | payer OTHER, SELFPAY ==
--- NOTE | ~2023-03-14 | US_ITS ---
US thyroid INDICATION: Nontoxic thyroid nodule TECHNIQUE: Real-time sonographic images of the thyroid gland were obtained. COMPARISON: Ultrasound dated 02/15/2022 FINDINGS: The right thyroid lobe measures 4.3 x 1.5 x 1.6 cm. The left thyroid lobe measures 4.5 x 1 x 1.3 cm. In the isthmus there is a 5 mm cystic mass. In the left thyroid lobe there is an oval hypo echoic solid, wider than tall, smoothly marginated mass measuring 8 x 5 x 4 mm, TR 4. Normal vascular flow is present. IMPRESSION: 1. Stable benign-appearing left thyroid mass measuring 8 mm maximum dimension, TR 4. Reviewed, dictated and finalized at location A.
== END 2023-03-14 13:34 | disposition home or self-care (01) ==
PROVIDERS: PCP Family Medicine; Visit Provider Family Medicine
DX: E04.1 Nontoxic single thyroid nodule (principal)
CPT/HCPCS: 76536

== ENCOUNTER 2023-03-20 12:15 | Outpatient (RCR) | payer OTHER, SELFPAY ==
--- NOTE | 2023-02-19 13:33 | PTOPEVAL1 ---
Assessment and note entered by Jasbir Pierce Evaluation Information Assessment Status Evaluation Diagnosis s/p right TKA Onset 01/22/23 Subjective Information Pt. reports that she underwent right TKA on . she reports having had home health PT initially. She is currently using no AD. She reports that she has returned to driving. She reports that she still has pain and stiffness in the right knee. She states that pain has worsened over the past couple days. She states that she is doing her exercises everyday. She states that she continues to walk with a slight limp. She reports that she does have her at home. She states that she was very active prior to surgery taking care of her yard and completing most heavy household duties. She reports that her goal is to improve mobility and to be able to walk without a limp and pain. Reported Pain Level Pain Score 4: Self Report Assessment PT Clinical Summary Pt. is a 57 year old female who enters the clinic 4 weeks post right TKA. She presents with impaired ROM, edema, impaired strength, impaired gait and functional decline. Continued skilled PT is indicated in order to improve these areas to allow for improved comfort with IADL performance. Plan of Care Interventions Electrical Stimulation,Gait Training,Hot Pack/Cold Pack,Manual Therapy,Neuro Re-education,Patient/ Caregiver Educati,Therapeutic Activities, Therapeutic Exercise,Self-Care/Home Management PT Services Indicated Yes Treatment Frequency and 2x/week x 10 visits Duration These treatments will address the objective and functional deficits as defined above. The patient will be advanced safely and appropriately in order for the patient to progress towards his/her prior level of function. Additional exercises will be introduced and as well as a comprehensive home exercise program upon discharge, if needed, ?to ensure carryover of functional gains achieved in the clinic. This treatment plan has been reviewed and agreement upon by the patient.
--- NOTE | 2023-02-19 13:34 | OPREHPOC ---
Outpatient Therapy Plan of Care This is a Multidisciplinary Plan of Care that may contain components documented by all disciplines (PT, OT, and ST.) PT Problem 1 PT Problem #1 Knowledge Deficit PT Goal 1 Goal Independent with a HEP focusing on ROM jew and edema control. Target Visit 2 PT Problem 2 PT Problem #2 Impaired Range of Motion PT Goal 1 Goal Pt. will achieve 0-115 degrees active right knee ROM Target Visit 10 PT Problem 3 PT Problem #3 Edema PT Goal 1 Goal Pt. will present with girth measurements at the knee joint line to 44cm or less. Target Visit 10 PT Problem 4 PT Problem #4 Impaired Gait PT Goal 1 Goal -Pt. will ambulate with equal right and left stance time without circumduction of the right l.e . during swing phase -Pt. will navigate steps with reciprocal pattern Target Visit 10 PT Problem 5 PT Problem #5 Impaired Strength PT Goal 1 Goal Pt. will demonstrate 5/5 gross l.e. strength on both right and left. Target Visit 10
--- NOTE | 2023-03-20 12:19 | PTOPDC ---
Assessment and note entered by Jasbir Pierce Discharge Information Assessment Status Discharge Diagnosis s/p right TKA Onset 01/22/23 Subjective Information Pt. reports that her pain is minimal. She reports that her pain levels are 0/10 for the most part. She reports she is completing all community activities without complication. She states that she is exercising at home daily and is ready for discharge at this time. Reported Pain Level Pain Score 0: Self Report Assessment PT Clinical Summary Pt. has met all goals in regards to strength and ROM. She still has mild gait deformity, likely due to chronic hip pain. She is independent with her HEP and will be discharged from our care at this time. Plan of Care PT Services Indicated D/C from PT to an independent HEP.
== END 2023-03-20 13:15 | disposition home or self-care (01) ==
LOC: ANHPT 12:15
PROVIDERS: PCP Family Medicine; Visit Provider Orthopaedic Surgery
DX: Z47.1 Aftercare following joint replacement surgery (principal); Z96.651 Presence of right artificial knee joint
CPT/HCPCS: 97014; 97110; 97161; 97530; G0283

== ENCOUNTER 2023-08-08 11:08 | Outpatient (CLI) | payer OTHER, SELFPAY ==
--- NOTE | ~2023-08-08 | US_ITS ---
EXAMINATION: US venous doppler [facility] DATE: 08/08/2023 11:56 INDICATION: Left lower limb pain TECHNIQUE: Grayscale ultrasound images without and with compression and Doppler ultrasound images of the left lower extremity veins were obtained. COMPARISON: None. FINDINGS: The visualized portions of left common femoral vein, profunda (deep) femoral vein, femoral vein, popl iteal vein, peroneal veins, posterior tibial veins, gastrocnemius vein and greater saphenous vein out flow are patent. IMPRESSION: 1. No deep venous thrombosis in the left lower limb. Reviewed, dictated and finalized at location B.
== END 2023-08-08 11:09 | disposition home or self-care (01) ==
PROVIDERS: PCP Family Medicine; Visit Provider Orthopaedic Surgery
DX: M79.652 Pain in left thigh (principal)
CPT/HCPCS: 93971

== ENCOUNTER 2023-08-15 06:44 | Outpatient (CLI) | payer OTHER, SELFPAY ==
--- NOTE | ~2023-08-15 | XR_ITS ---
AP view of the pelvis and AP and lateral views of the left hip Clinical history: Pain Findings: No acute fracture or dislocation is seen. Osseous alignment is anatomic. Bilateral hip and SI joint spaces are preserved. Soft tissues are unremarkable. Impression: No significant abnormality is seen. Reviewed, dictated and finalized at location . Impression: No significant abnormality is seen.
== END 2023-08-15 06:45 | disposition home or self-care (01) ==
PROVIDERS: PCP Family Medicine; Visit Provider Physician Assistant Medical
DX: M25.552 Pain in left hip (principal)
CPT/HCPCS: 73502

== ENCOUNTER 2024-07-08 00:56 | Day surgery (SDC) | payer OTHER, SELFPAY ==
[2024-06-21 12:52] VITALS: BMI 28.5
--- OUTSIDE RECORDS SUMMARY | 2024-07-08 01:00 | XMS_ITS | Data Portability ---
Author Organization [facility] Address [address] [address] [place] [address] Care Team Providers [place] Interpretive Specialist Name Role Phone ANGEL FAROOQ Primary Care Provider Assessment Encounter Date Assessment Date Assessment LastModified by Organization Details LastModified Time 11/27/2022 11/27/2022 Annual gynecological exam performed. Patient will come back in a year unless there are new symptoms. raad Not available 11/27/2022 10:51:46 03/23/2024 03/23/2024 Annual gynecological exam performed. Patient will come back in a year unless there are new symptoms. Not available 03/12/2024 15:21:56 Plan of Treatment Reminders Order Date Submit Date Provider Last Modified By Organization Details Last Modified Time Details Appointments None recorded . Lab pap, IG + HR HPV - HPV regardle ss but if HPV is positive need subtypin g 16,18/45 2023 024 [facility] (Lab), [address], [place], [address], 4 08:51:07 Referral None recorded . Procedures None recorded . Surgeries None recorded . Imaging US, pelvis, complete 2022 023 raad [facility], [address], [address], [place], [address], 3 14:58:13 MAMMO, screenin g, digital, bilatera l 2022 023 [facility], [address], [place], [address], 3 13:46:02 US, pelvis 2022 023 [email or web address] [facility], [address], [place], [address], 3 21:30:13 US, transvag inal 2022 023 [email or web address] [facility], [address], [place], [address], 3 21:30:13 MAMMO, screenin g, digital, bilatera l 2023 024 [facility], [address], [place], [address], 4 04:09:25 Medication Orders None recorded . Patient TargetsNo targets recorded. Patient InstructionsNo instructions recorded. Reason for Referral None Reported. Results Created Date Observation Date Name Description Value Unit Range Abnormal Flag Note LastModifiedBy Organization Detail LastModifiedTime 11/28/1911/27/2022 IMAGE GUIDE D PAP AND HPV REGAR DLESS image guided Pap, HPV regardless of Pap result SEE RESULT S BELOW CASE REPOR T: Cytol ogy Gynec ologi delon Repor t Case: [id number] Autho estefania lyon Provi lolita: Jessica Sanz, PUBLIC AREA ATTENDANT Colle cted: 11/27 1128 Order ing Locat ion: [place] [facility] Recei norma: 11/28 0203 First Scree n: Roxie Hernandez ay, CT Rescr een: John Romero, CT Speci men: Diagn ostic Pap - Image d, Cervi x STATE MENT OF ADEQU ACY: Satis facto ry for evalu ation Trans forma tion zone compo nent absen t The absen ce of an endoc ervic al compo nent was confi rmed by an addit ional scree ner. FINAL DIAGN OSIS: Negat daryn for Intra epith elial Lesio n or Stoney lopezcy (NIL) . Elect jocelyne garcia christopher d by John Romero, CT on 023 at 2:17 PM ----- ----- ----- ----- ----- ----- ----- ----- ----- ----- ----- ----- ----- ----- ----- ----- ----- ---- HPV RESUL TS: HPV mRNA E6/E7 : No HPV mRNA Detec winter NOTE: This high risk HPV mRNA assay detec ts fourt een high- risk HPV types (16, 18, 31, 33, 35, 39, 45, 51, 52, 56, 58, 59, 66, 68) witho ut diffe renti ation . COMME NT: This speci men was revie wed by a Cytot echno logis t and/o r Patho logis t (as indic ated in this repor t) after evalu ation using the Thinp rep Imagi ng Syste m. CLINI DELON INFOR MATIO N: Menst rual Statu s: LMP (if appli cable ): Clini delon Histo ry/Pr eviou s Pap: Type of Neopl kandis (if appli cable ): Signi fican t Clini delon Findi ngs: Other Histo ry: Hormo james (if appli cable ): PAP EDUCA BUTCH L NOTE: The Pap Test is a scree delvin test with an inher ent false negat daryn rate. Liqui d-bas ed sampl ing may decre ase, but will not elimi mervin, false negat daryn resul ts. A negat daryn resul t does not precl ude the prese nce and/o r devel opmen t of disea se, since the prese nce of abnor mal cells in the sampl e depen ds on the locat ion of the lesio n and sampl ing techn ique. Kirstin nued regul ar scree delvin is the best metho d of cance r preve ntion . If repor winter cytol ogic findi ng do not corre late with physi delon and/o r histo rical findi ngs, furth er inves tigat ion is recom crystal d, as clini aileen chaudhry nted. Not Available [facility] (Lab) [address], [place], [address], 11/28/2022 15:21:40 11/28/19 23 11/27/2022 MAMMO , scree delvin, digit al, bilat eral No observ ation record ed. [email or web address], [place], [address], 11/27/2022 14:49:21 11/29/19 23 11/28/2022 US, pelvi s No observ ation record ed. [email or web address] [facility] [address], [place], [address], 11/28/2022 12:06:53 11/29/19 23 11/28/2022 US, trans vagin al No observ ation record ed. [email or web address] [facility] [address], [place], [address], 11/28/2022 12:05:51 11/29/19 23 11/28/2022 US, pelvi s No observ ation record ed. [address], [facility], [place], [address], 12/03/2022 11:57:08 12/01/19 23 11/27/2022 MAMMO , scree delvin, digit al, bilat eral No observ ation record ed. [facility] [address], [place], [address], 12/02/2022 10:46:14 12/21/19 23 11/27/2022 MAMMO , scree delvin, digit al, bilat eral No observ ation record ed. [email or web address] [facility] [address] [facility] [address], [place], [address], 12/23/2022 14:27:14 12/22/19 23 11/27/2022 MAMMO , wesleye delvin, digit al, bilat eral No observ ation record ed. [email or web address] [facility] [address], [place], [address], 12/23/2022 14:27:15 Result Notes None recorded. Procedures Surgical History Date Name Laterality Status Provider Name and Address Organization Details Recorded Time 023 total knee replacement completed Jackeline Farah [facility] 03/23/2024 10:53:15 023 Date of Last Mammogram completed [facility] 03/12/2024 15:23:54 023 Date of Last Pap Smear completed [facility] 03/12/2024 15:23:13 022 IUD Removal completed Venkatesh Triplett MD [address], [place], [address], [facility] 08/13/2021 11:02:07 011 Cholecystectomy completed [facility] 08/13/2021 10:14:03 990 section completed [facility] 08/13/2021 10:14:29 Imaging Results Imaging Date Name Status LastModified by Organization Details LastModified Time 11/27/2022 MAMMO, screening, digital, bilateral completed [email or web address] [facility] [address], [place], [address], 11/27/2022 14:49:21 11/28/2022 US, pelvis completed [address], [place], [address], 11/28/2022 12:06:53 11/28/2022 US, transvaginal completed [email or web address] [address], [place], [address], 11/28/2022 12:05:51 11/28/2022 US, pelvis completed [facility] [address], [place], [address], 12/03/2022 11:57:08 11/27/2022 MAMMO, screening, digital, bilateral completed [email or web address] [facility] [address], [place], [address], 12/02/2022 10:46:14 11/27/2022 MAMMO, screening, digital, bilateral completed [email or web address] [facility] [address], [place], [address], 12/23/2022 14:27:14 11/27/2022 MAMMO, screening, digital, bilateral completed [email or web address] [facility] [address], [place], [address], 12/23/2022 14:27:15 Procedure Notes None recorded. Medical Equipment None Reported. Allergies No known drug allergies Medications Name Sig Start Date Stop Date Status Note LastModified by Organization Details LastModified Time amoxicillin 500 mg capsule 03/23 completed Not Available Not Available Not Available cetirizine 10 mg tablet Take 1 {tbl} every 24 hours by oral route. 03/23 completed Not Available Not Available Not Available famotidine 40 mg tablet 11/27 completed Not Available Not Available Not Available sulfamethox azole 800 mg-trimetho prim 160 mg tablet 11/27 completed Not Available Not Available Not Available triamcinolo ne acetonide 0.1 % topical cream 08/13 completed Not Available Not Available Not Available Serevent Diskus 50 mcg/dose powder for inhalation 1 {puff} every 12 hours by inhalatio n route. 11/27 completed Not Available Not Available Not Available meloxicam 7.5 mg tablet 03/23 completed Not Available Not Available Not Available pantoprazol e 40 mg tablet,tanya yed release 1 {tbl} every 24 hours by oral route. 08/13 completed Not Available Not Available Not Available fluticasone propionate 100 mcg/actuati on blister powder for inhalation active Not Available Not Available N ot Available montelukast 10 mg tablet 1 {tbl} every 24 hours by oral route. 11/27 completed Not Available Not Available Not Available methylpredn isolone 4 mg tablets in a dose pack 03/23 completed Not Available Not Available Not Available albuterol sulfate HFA 90 mcg/actuati on aerosol inhaler active Not Available Not Available Not Available Vitals Date Recorded Body height Body mass index (BMI) Body weight Systolic blood pressure Diastolic blood pressure Provider Name and Address Organization Details Last Updated DateTime 08/13/2021 154.94 cm 33.8 kg/m2 37034.03 g 135 mm[Hg] 88 mm[Hg] Sarina Smith [facility] 2 10:25:53 Date Recorded Body height Body mass index (BMI) Body weight Systolic blood pressure Diastolic blood pressure Provider Name and Address Organization Details Last Updated DateTime 11/27/2022 154.94 cm 36.1 kg/m2 87010.14 g 130 mm[Hg] 83 mm[Hg] [facility] 10:52:09 Date Recorded Body height Body mass index (BMI) Body weight Systolic blood pressure Diastolic blood pressure Provider Name and Address Organization Details Last Updated DateTime 12/03/2022 154.94 cm 36.1 kg/m2 49231.14 g 133 mm[Hg] 83 mm[Hg] [facility] 10:22:40 Date Recorded Body height Body mass index (BMI) Body weight Systolic blood pressure Diastolic blood pressure Provider Name and Address Organization Details Last Updated DateTime 03/23/2024 154.94 cm 35.9 kg/m2 40349.55 g 122 mm[Hg] 85 mm[Hg] Jackeline Farah [facility] 10:49:39 Social History Question Answer Notes LastModified by Organizat ion Details LastModified Time Tobacco Smoking Status Never Smoker Sarina chung [facility] 08/13/2021 10:12:48 Are You Blind Or Do You Have Difficulty Seeing? No Information not available 11/27/2022 Are You Deaf Or Do You Have Serious Difficulty Hearing? No Information not available 11/27/2022 Sex: Unknown Functional Status Question Answer Note LastModified by Organizat ion Details LastModified Time Do you have difficulty walking or climbing stairs? No Information not available 11/27/2022 Are you able to walk? YESWOREST Information not available 11/27/2022 Are you able to care for yourself? Yes Information not available 11/27/2022 Do you have difficulty dressing or bathing? No Information not available 11/27/2022 Mental Status None recorded. Family History Relationship Description Onset Age of this Age Resolved Age Notes LastModified by Organization Details LastModified Time Mother Cyst of ovary [email or web address] Not available 2021 10:12:24 Paternal Grandmother Malignant tumor of ovary [email or web address] Not available 2021 10:27:15 Medical History Condition Response Pulmonary (TB, Asthma) Y Lung Disease Y Gynecological History Statement/Question Response Date of Last Mammogram 11/30/2022 STIs/STDs N HPV Vaccine N Current Control Method Menopause If Post Menopausal, Age at Menopause 57 Date of Last Colonoscopy Sexually Active? Y Menses Monthly N Age of first menstrual cycle 18 Date of Last Pap Smear 11/27/2022 Sexual Problems? N Desired Control Method None Obstetrics History GPAL:G 1 P 1 0 0 1 Type Value Full Term 1 Living 1 Total 1 Past Encounters Encounter ID Performer Location Encounter Start Date Encounter Closed Date Diagnosis/Indication Diagnosis SNOMED-CT Code Diagnosis ICD10 Code Diagnosis Note [id number] Venkatesh Triplett MD [facility] [address] [address] 08/13/2021 09:53:40 08/13/2021 11:03:18 Contraception care management 492429302 Z30.9 This patient is a 56-year-ol d female presents for IUD removal. She also has some questions about hormone replacemen t therapy. She has a history of a DVT on oral contracept daryn pills. We agreed not to consider any hormones. She has no menopausal symptoms. She tolerated IUD removal well [id number] DIMPLE Shook [facility] [address] [address] 11/27/2022 10:38:03 11/27/2022 11:19:41 Screening for malignant neoplasm of breast 687185792 Z12.39 Gynecologi c examination 33625246 Z01.419 Take Calcium with Vitamin D 12-1500mg daily. Do monthly self breast exams. It is advised to get annual flu shot in the fall and she could obtain at [facility] or [facility] clinic. If you haven't received the Tdap vaccine in the last 10 years you should obtain one as well. Have mammogram yearly, bone density every 2-3 years and colonoscop y every 5-10 years depending on findings and history. Engage in daily exercise of low impact aerobic exercise 45-60 minutes 4-5 times weekly. Avoid tobacco and illicit drugs as well as using moderation with alcohol intake less than 1-2 8 oz beverages daily. This lifestyle behavior pattern will lead to less health conditions and longer life span. If BMI greater than 25 weight watchers or dietary consult advised. Questions have been answered. Patient appears to understand instructio ns, but if you have any further questions call or respond to this email Martell Lehman : 1 year ago. Noticed spotting 1-2 times over the last month. We agreed to update TVUS for further evaluation .No hx of abnormal papslast pap 2020 - normalpap updated todaySTI testing declineddi scussed crisco twice daily as moisturize r, use as lubricatio n with ICUTD with PCPmammogr am order givenRTC for pelvic u/s and f/u Time spent in visit is a total of 30 mins with at least 50% of visit consisting of counseling and review of plan of care. Postmenopa usal bleeding 59773213 N95.0 [id number] Linda Yung [facility] [address] [address] 11/28/2022 10:50:41 11/28/2022 11:41:07 Postmenopausal bleeding 33064099 N95.0 [id number] DIMPLE Shook [facility] [address] [address] 12/03/2022 10:13:30 12/03/2022 12:07:41 Vulval irritation 628171222 N90.89 Reviewed updated TVUSendome trium 4.5 MMspotting episode appears to be from vulvar irritation /itching that occurred rather than true postmenopa usal bleeding.O ption of performing EMB given to patient, rocio hall would like to repeat pelvic u/s in 8 weeks and notify our office if spotting ever occurs again. She is no longer having any vulvar irritation . She is going to use crisco twice daily as vulvar moisturize r.Precauti ons discussed with patientf/u in 8 weeks or sooner if needed Time spent in visit is a total of 18 mins with at least 50% of visit consisting of counseling and review of plan of care. [id number] Britney Goodman [facility] [address] [address] 03/23/2024 10:13:56 03/23/2024 11:25:16 Gynecologic examination 75037165 Z01.419 Annual gynecologi delon exam performed. Patient will come back in a year unless there are new symptoms. Suggest Calcium with Vitamin D if not eating in diet. Patient advised to get annual flu shot. Recommend yearly physicals and perform monthly breast exams. Genetic testing is available for patients with family history of cancer. Engage in safe sexual practices, use condoms. Encouraged to have daily exercise. Avoid tobacco and illicit drugs, moderation of alcohol. If BMI greater than 25 dietary consult advised. If you have any questions please call or email. mammogram- DUE - pt states that PCP ordered her mammogram a month ago, but she has not heard from imaging center. Patient requests order today, instructed pt to call [facility] and get scheduled. colon cancer screening - DUE (last 2018, q 5 yrs) - PCP sent GI referral DEXA scan- PCP Pap smear- Pap w/ HPV collected per pt request. laboratory evaluation - PCP STI testing - declined Screening mammography 24 208332 Z12.31 Pt to call and schedule annual mammogram. Health Concerns Section Related Observation LastModified by Organization Detai ls LastModified Time None Recorded Concern Status LastModified by Organization Details LastModified Time None Recorded Advance Directives Directive None Recorded Payers Encounter Date Sequence Insurance Name Policy Number Policy Kay Covered Member ID Kay Member ID Guarantor Name 08/13/2021 1 FOR LIFE () Larry Scott [id number] Sierra Scott 11/27/2022 1 FOR LIFE () Larryjosé Scott [id number] Sierra Scott 11/28/2022 1 FOR LIFE () Larryjosé Scott [id number] Sierra Scott 12/03/2022 1 FOR LIFE () Larryjosé Scott [id number] Sierra Scott 03/23/2024 1 FOR LIFE () Larryjosé Scott [id number] Sierra Scott Notes Date Note Type Note Provider Name and Address Organization Details Recorded Time 08/13/2021 text/html This patient is a 56-year-old female presents for IUD removal. She also has some questions about hormone replacement therapy. She has a history of a DVT on oral contraceptive pills. We agreed not to consider any hormones. She has no menopausal symptoms. She tolerated IUD removal well Venkatesh Triplett MD [address], [place], [address], [facility] 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 Post-MenopausalRepo rted bypatient.Menopausa l Symptoms:no menopausal symptoms; normal vaginal lubrication Vaginal Bleeding:post menopausal bleeding Urinary Symptoms:no hematuria; no incontinence; no nocturia; no urinary frequency Vulva:no genital lesion; no vulvar atrophy Vagina:normal vaginal discharge; no vaginal atrophy Breast:no breast lump; no nipple discharge; no breast pain Sexual Complaints:no sexual complaints Psychological Symptoms:no depression; no anxiety Preventive Measures:encourage regular mammograms starting age 40; encourage self breast examination; encourage regular exercise; encourage no tobacco use DIMPLE Shook [address], [place], [address], [facility] 11/27/2022 11:16:09 12/03/2022 text/html 57yopresents for pelvic u/s f/upostmenopausal x 1 yearu/s done due to spotting episode that happened 1-2 times when wiping per patient. She thinks it was due to vulvar irritation bc she has itching and irritation when this occurred. DIMPLE Shook [address], [place], [address], [facility] 12/03/2022 11:56:45 03/23/2024 text/html Annual GYNReport ed bypatient.History:n o gynecologic complaints Menstrual cycle:Post menopausal Urinary symptoms:No hematuria; No incontinence Vulva:No genital lesion Vagina:Normal vaginal discharge Breast:No breast pain; No breast lump; No nipple discharge Sexual complaints:No sexual complaints; No pain during intercourse; Normal libido Menopausal Symptoms:No menopausal symptoms; Normal vaginal lubrication Psychological symptoms:No depression; No anxiety; No PMDD Preventive measures:Encourage self breast examination; Encourage regular exercise; Encourage no tobacco use; Encourage regular mammograms starting age 40; Needs to schedule mammogram; Needs to schedule colonoscopy Patient presents for annual well woman exam. Patient denies concerns today. Denies any abnormal bleeding or menopausal symptoms. Britney chung, [facility] 03/23/2024 11:27:30 OBGyn Episode Ob Episode Information Episode Created Date Number of Fetuses Patient Bloodtype Patient rh Status Prepregnancy Weight lbs Domestic Partner Domestic Partner Phone Father Name Rotary Drill Operator Status 08/14/19 22 1 CLOSED Fetus Data First Name Last Name Admitted to NICU Weight (g) Sex Living Outcome Pediatric Complications Fetus ID Race Codes Race Delivery Type 3628.73 6 M Full Term [id number] Primary Joni Calculation Initial Joni Date Initial Exam Date Initial Exam Provider Initial Ultrasound Date Last Menstrual Period Date Ultra Sound Weeks Gestation 0 Eighteen To Twenty Week Joni Update Ultra Sound Date Fundal Height At Umbil Quickening Date Ultra Sound Latest Weeks Gestation Final Joni Confirmed By Final Joni Confirmed Date Final Joni Date Ultra Sound Latest Days Gestation 0 0 Menstrual History Last Menstrual Date Menses Monthly On Bcp Conception Prior Menses Frequency Hcg Plus Date Menarche Onset Age Delivery Information Delivery Date Delivery Type Labor Anesthesia Weeks Gestation Incision Type Labor Labor Length Hrs Delivered By Post Complications Tubal Sterilization Discharge Date Comments 0 40 Jasbir Discharge Information Feeding Method Contraceptive Method Maternal HG B and HCT Levels
[2024-07-08 10:28] VITALS: BP 157/96; PULSE 88; RESP 16; TEMP 36.1; O2SAT 97
[2024-07-08] MEDS: LACTATED RINGERS 1,000 ML 150 ML IV CONT (10:36)
--- NOTE | 2024-07-08 11:12 | P.HP_ITS ---
History of Present Illness History of Present Illness Consent: Risks, benefits, and alternatives have been discussed and questions answered. Patient agrees to proceed with procedure. Chief complaint: hx of colon polyps Narrative: Sierra Scott is a 59 year old female with colon polyp in 2019 Review of Systems Review of Systems: All systems reviewed & are unremarkable except as noted in HPI and below PMFSH Past Medical History Medical History (Updated 07/08/24 @ 11:13 by Zia Jeff MD) Colon polyp Asthma-COPD overlap syndrome Sleep apnea COPD (chronic obstructive pulmonary disease) Left knee DJD Right knee DJD Osteoporosis Arthritis IBS (irritable bowel syndrome) Asthma Surgical History Surgical History Status post total right knee replacement DOS 01/22/23 Hx of total knee arthroplasty right Normal thoracoscopy s/p VATS for biopsy History of cholecystectomy Hx of section 1989 Social History Social History Smoking status: Never smoker Second hand tobacco smoke exposure: Yes ( A CHILD) Additional smoking assessment comments: PT DENIES ALL FORMS OF TOBACCO USE Alcohol intake: current Drinks per week: 2 Substance use: never Substance use type: does not use Lack of Transportation: No Lack of Food: Never True Current Housing: I Have Housing Concerned About Future Housing: No Difficulty Paying Gas/Electric Bills: No Difficulty Paying for Meds: No Currently Unemployed: No Education: Associate Degree Difficulty w/ Childcare or Family Care: No Living arrangements: with family Occupation/Education: unemployed Gender identity (if verbalized by the patient): Female Sexual Orientation (if Verbalized by the Patient): Straight or Heterosexual Spiritual care concerns: No Meds Home Medications and Allergies Home Medications ?Medication ?Instructions ?Recorded ?Confirmed ?Type calcium carbonate 1,200 mg PO DAILY 08/02/21 07/08/24 History cetirizine 10 mg capsule (Zyrtec) 10 mg PO DAILY PRN allergy 06/13/22 07/08/24 Rx symptoms #90 caps levocetirizine 5 mg tablet (Xyzal) 5 mg PO DAILY 08/20/22 07/08/24 History Centrum Silver Ultra Women's 2 gummy PO DAILY 01/08/23 07/08/24 History Focus Factor - Memory 1 tab-cap BYMOUTH DAILY 01/08/23 07/08/24 History Probiotic 1 tab-cap BYMOUTH DAILY 01/08/23 07/08/24 History Shiff Digestive 2 gummy BYMOUTH DAILY 01/08/23 07/08/24 History ascorbic acid (vitamin C) 500 mg 500 mg PO DAILY 01/08/23 07/08/24 History tablet (Vitamin C) cholecalciferol (vitamin D3) 125 125 mcg PO DAILY 01/08/23 07/08/24 History mcg (5,000 unit) tablet chondroitin sulfate A sodium 400 1,200 mg PO DAILY 01/08/23 07/08/24 History mg capsule cyanocobalamin (vitamin B-12) 1 cap BYMOUTH DAILY 01/08/23 07/08/24 History garlic 1,000 mg capsule 1,000 mg PO DAILY 01/08/23 07/08/24 History ginkgo biloba 120 mg tablet 120 mg PO DAILY 01/08/23 07/08/24 History ginkgo biloba leaf extract 120 1 tablet PO DAILY 01/08/23 07/08/24 History mg-choline bitartrate 110 mg tablet ([facility] Support) glucosamine sulfate 750 mg tablet 1,500 mg PO DAILY 01/08/23 07/08/24 History magnesium 200 mg tablet 200 mg PO DAILY 01/08/23 07/08/24 History turmeric 100 mg-rao 150 1 cap PO DAILY 01/08/23 07/08/24 History mg-olive 50 mg-oreg 150 mg-capryl capsule albuterol sulfate 90 mcg/actuation 1 - 2 puff inhalation Q4-6H PRN 03/16/24 07/08/24 Rx aerosol inhaler shortness of breath or wheezing #8.5 grams fluticasone propionate 100 1 inh inhalation Q12H #60 ea 03/16/24 07/08/24 Rx mcg/actuation blister powder for inhalation Allergies Allergy/AdvReac Type Severity Reaction Status Date / Time No Known Allergies Allergy Verified 07/08/24 10:23 Vital Signs Vital Signs - 24 hr 07/08/24 10:28 Temperature 97.0 F L Pulse Rate 88 Respiratory Rate 16 Blood Pressure 157/96 H Pulse Oximetry 97 Oxygen Delivery Room Air Exam Const: General: comfortable and no acute distress HENMT: Face/Nose/Sinus: Normal nares present Eyes: General: appearance normal, both eyes and all related structures Neck: Neck: no JVD Resp: Auscultation: clear to auscultation bilaterally Cardio: Rate: regular rate Rhythm: regular rhythm GI: Inspection: non-distended GI Palp: Yes Soft to palpation Skin: General skin exam: normal color Neuro: General: gait normal Speech: normal speech Extrem: General: normal to inspection Psych: Mental Status: mental status grossly normal Assessment and Plan Assessment and plan (1) Colon polyp: Code(s): K63.5 - Polyp of colon Status: Acute Assessment and Plan: colonoscopy
--- NOTE | 2024-07-08 11:13 | WPDANESEPPF ---
Anes - Initial Pre Proc Eval Procedure: Operation Date: 07/08/24 11:30 Proposed Procedures p Colonoscopy - Zia Jeff MD Date/Time: 07/08/24 11:13 Surgeon: Zia Jeff MD Pre Op Diagnosis: hx of colon polyps Patient Data Age: 59 Gender: F Height: 1.55 m Weight: 78.3 kg Last Vital Signs Temp 36.1 C L 07/08/24 10:28 Pulse 88 07/08/24 10:28 Resp 16 07/08/24 10:28 BP 157/96 H 07/08/24 10:28 Pulse Ox 97 07/08/24 10:28 O2 Del Method Room Air 07/08/24 10:28 Allergies Allergy/AdvReac Type Severity Reaction Status Date / Time No Known Allergies Allergy Verified 07/08/24 10:23 Home Medications ?Medication ?Instructions ?Recorded ?Confirmed ?Type calcium carbonate 1,200 mg PO DAILY 08/02/21 07/08/24 History cetirizine 10 mg capsule (Zyrtec) 10 mg PO DAILY PRN allergy 06/13/22 07/08/24 Rx symptoms #90 caps levocetirizine 5 mg tablet (Xyzal) 5 mg PO DAILY 08/20/22 07/08/24 History Centrum Silver Ultra Women's 2 gummy PO DAILY 01/08/23 07/08/24 History Focus Factor - Memory 1 tab-cap BYMOUTH DAILY 01/08/23 07/08/24 History Probiotic 1 tab-cap BYMOUTH DAILY 01/08/23 07/08/24 History Shiff Digestive 2 gummy BYMOUTH DAILY 01/08/23 07/08/24 History ascorbic acid (vitamin C) 500 mg 500 mg PO DAILY 01/08/23 07/08/24 History tablet (Vitamin C) cholecalciferol (vitamin D3) 125 125 mcg PO DAILY 01/08/23 07/08/24 History mcg (5,000 unit) tablet chondroitin sulfate A sodium 400 1,200 mg PO DAILY 01/08/23 07/08/24 History mg capsule cyanocobalamin (vitamin B-12) 1 cap BYMOUTH DAILY 01/08/23 07/08/24 History garlic 1,000 mg capsule 1,000 mg PO DAILY 01/08/23 07/08/24 History ginkgo biloba 120 mg tablet 120 mg PO DAILY 01/08/23 07/08/24 History ginkgo biloba leaf extract 120 1 tablet PO DAILY 01/08/23 07/08/24 History mg-choline bitartrate 110 mg tablet ([facility] Memory Support) glucosamine sulfate 750 mg tablet 1,500 mg PO DAILY 01/08/23 07/08/24 History magnesium 200 mg tablet 200 mg PO DAILY 01/08/23 07/08/24 History turmeric 100 mg-rao 150 1 cap PO DAILY 01/08/23 07/08/24 History mg-olive 50 mg-oreg 150 mg-capryl capsule albuterol sulfate 90 mcg/actuation 1 - 2 puff inhalation Q4-6H PRN 03/16/24 07/08/24 Rx aerosol inhaler shortness of breath or wheezing #8.5 grams fluticasone propionate 100 1 inh inhalation Q12H #60 ea 03/16/24 07/08/24 Rx mcg/actuation blister powder for inhalation Patient hx anesthesia problems: none Family hx anesthesia problems: none Results Review: All pre-operative results and documents have been reviewed as part of the pre-operative evaluation. [facility] Past Medical History Medical History Asthma-COPD overlap syndrome Sleep apnea COPD (chronic obstructive pulmonary disease) Left knee DJD Right knee DJD Osteoporosis Arthritis IBS (irritable bowel syndrome) Asthma Surgical History Surgical History Status post total right knee replacement DOS 01/22/23 Hx of total knee arthroplasty right Normal thoracoscopy s/p VATS for biopsy History of cholecystectomy Hx of section 1989 Social History Social History Smoking status: Never smoker Second hand tobacco smoke exposure: Yes ( A CHILD) Additional smoking assessment comments: PT DENIES ALL FORMS OF TOBACCO USE Alcohol intake: current Drinks per week: 2 Substance use: never Substance use type: does not use Lack of Transportation: No Lack of Food: Never True Current Housing: I Have Housing Concerned About Future Housing: No Difficulty Paying Gas/Electric Bills: No Difficulty Paying for Meds: No Currently Unemployed: No Education: Associate Degree Difficulty w/ Childcare or Family Care: No Living arrangements: with family Occupation/Education: unemployed Gender identity (if verbalized by the patient): Female Sexual Orientation (if Verbalized by the Patient): Straight or Heterosexual Spiritual care concerns: No Anes - Eval Final PreProcedure Day of Procedure 07/08/24 11:13 Patient weight: obese Heart: regular rate and rhythm Lungs: clear to auscultation Airway: Mallampati scale class II Neurological: alert and oriented Last oral intake: >/= 8 hours ASA classification: III Emergent: no Anesthetic plan: proceed Anesthesia type and monitoring: general GIVS and standard monitoring Results Review: All pre-operative results and documents have been reviewed as part of the pre-operative evaluation. Informed Consent: The patient's anesthetic plan and its attendant risks and benefits were discussed with the patient/family/POA. Questions were solicited and answers provided to the satisfaction of the patient/family/POA.
[2024-07-08 11:30] VITALS: BP 126/104; PULSE 82; RESP 18; O2SAT 98
[2024-07-08 11:40] VITALS: BP 139/82; PULSE 86; RESP 23; O2SAT 100
[2024-07-08 11:50] VITALS: BP 157/91; PULSE 83; RESP 23; O2SAT 98
== END 2024-07-08 11:52 | disposition home or self-care (01) ==
PROVIDERS: PCP Family Medicine; Visit Provider Internal Medicine Gastroenterology
PROC: 0DJD8ZZ Inspection of Lower Intestinal Tract, Via Natural or Artificial Opening Endoscopic (ICD-10-PCS; CPT 45378; principal; 2024-07-08 11:30)
DX: Z12.11 Encounter for screening for malignant neoplasm of colon (principal); K63.5 Polyp of colon; K64.8 Other hemorrhoids; J44.9 Chronic obstructive pulmonary disease, unspecified; M17.0 Bilateral primary osteoarthritis of knee; M81.0 Age-related osteoporosis without current pathological fracture; K58.9 Irritable bowel syndrome, unspecified; E66.9 Obesity, unspecified; Z68.32 Body mass index [BMI] 32.0-32.9, adult; Z79.51 Long term (current) use of inhaled steroids; Z98.890 Other specified postprocedural states; Z90.49 Acquired absence of other specified parts of digestive tract
CPT/HCPCS: 45385; 88305; J2003; J2704; J7120

== ENCOUNTER 2024-08-10 13:46 | Outpatient (CLI) | payer OTHER, SELFPAY ==
--- NOTE | ~2024-08-10 | MM_ITS ---
EXAMINATION: MM screening mounika BI w azucena HISTORY: Screening TECHNIQUE: Craniocaudal and mediolateral oblique 3-D tomosynthesis images were obtained and synthetic 2-D images were generated. CAD analysis was submitted and interpreted. COMPARISON: Comparison to multiple prior studies sequentially, with oldest reviewed study dated 12/2014. BREAST PARENCHYMAL COMPOSITION: Not dense: There are scattered areas of fibroglandular density. FINDINGS: There is no evidence of suspicious mass, calcification, or architectural distortion to sugg est malignancy in either breast. There has been no suspicious interval change. IMPRESSION: 1. No mammographic evidence of malignancy. 2. Recommend routine screening mammography in one year. BI-RADS Category 1: Negative Reviewed, dictated and finalized at location B.
== END 2024-08-10 13:47 | disposition home or self-care (01) ==
LOC: MICIMG 13:47
PROVIDERS: PCP Family Medicine; Visit Provider Family Medicine
DX: Z12.31 Encounter for screening mammogram for malignant neoplasm of breast (principal)
CPT/HCPCS: 77063; 77067

== ENCOUNTER 2024-11-04 07:45 | Outpatient (CLI) | payer OTHER, SELFPAY ==
--- NOTE | ~2024-11-04 | DEXA_ITS ---
Bone Density Report Name: AVERY JOHNSON Age: 59 Sex: Female Ethnicity: White Date of : 1965 Indication: postmenopausal; screening for osteoporosis; parental hip fracture; height loss; Referring Provider: HARPAL FRANKS Study: Bone densitometry was performed. Exam Date: November 04, 2024 Accession number: [id number] Bone Density: Region BMD T-score Z-score Classification AP Spine(L1-L4) 0.938 -1.0 0.3 Normal Femoral Neck (Left) 0.656 -1.7 -0.6 Osteopenia Total Hip (Left) 0.872 -0.6 0.2 Normal Femoral Neck (Right) 0.693 -1.4 -0.2 Osteopenia Total Hip (Right) 0.846 -0.8 0.0 Normal Total Hip Mean 0.859 -0.7 0.1 Normal World Health Organization criteria for BMD impression classify patients as: Normal (T-score at or above -1.0), Osteopenia (T-score between -1.0 and -2.5), or Osteoporosis (T-score at or below -2.5). 10-year Fracture Risk(1): Major Osteoporotic Fracture 14% Hip Fracture 0.7% Reported Risk Factors: [place] (), Neck BMD=0.656, BMI=37.0, parental fracture (1) FRAX(R) Version 3.08. Fracture probability calculated for an untreated patient. Fracture probability may be lower if the patient has received treatment. Clinical Information Provided by Patient: Parent has had a hip fracture Has used the following medications: Vitamin D, Calcium Patient maximum height was 62 Menopause Age: 57 Drinks caffeinated beverages Onset of menses at age 18 Number of children 1 Impression: The patient has low bone mass, based on the Left Femoral Neck T-score. The patient has an estimated ten-year risk of hip fracture of 0.7% and an estimated ten-year risk of major fracture of 14%, based on the WHO FRAX algorithm. The patient has risk factors, including: parental hip fracture. Discussion: BONE DENSITY IS LOW AT ONE OR MORE SKELETAL SITES. This patient's lowest T-score is low at one or more skeletal sites. It meets the World Health Organization's (WHO) criteria for ?low bone mass? (T-score between -1.0 and -2.5). The patient's 10-year risk of fracture as calculated by FRAX is less than the threshold where pharmacological therapy is recommended by the National Osteoporosis Foundation (NOF). However, all treatment decisions require clinical judgment and consideration of individual patient factors, including patient preferences, comorbidities, previous drug use, risk factors not captured in the FRAX model (e.g., frailty, falls, vitamin D deficiency, increased bone turnover, interval significant decline in bone density) and possible under or overestimation of fracture risk by FRAX. The patient should follow a healthful lifestyle (good nutrition with adequate calcium and vitamin D, and appropriate weight-bearing exercise). Follow-Up: Consider repeating this study in 2 to 3 years to reassess this patient's status, or sooner if there is some new clinical indication. Reported by: RAFAEL on 11/04/2024 8:27:00 AM. Reviewed, dictated and finalized at location A.
--- OUTSIDE RECORDS SUMMARY | 2024-11-04 07:49 | XMS_ITS | Continuity of Care Document ---
Author Organization [facility] Address [address] [place] [address] Phone Care Team Providers Care Middleware Administrator Name Role Phone West Cintron MD Unavailable Unavailable Allergies, Adverse Reactions, Alerts Substance Reaction Status Criticality No Known Allergies Active No Inform ation Medications Medication Instructions Dosage Effective Dates (start - stop) Status Comments Protonix 40 mg tablet,delayed release take 1 tablet by oral route every day 40 MG - Active Synthroid 25 mcg tablet take 1 tablet by oral route every day 25 MCG - Active triamcinolone acetonide 0.1 % topical cream apply by topical route 2 times every day a thin layer to the affected area(s) 0.00 - Active Serevent Diskus 50 mcg/dose powder for inhalation inhale 1 puff by inhalation route 2 times every day in the morning and evening approximately 12 hours apart 1.00 puff - Active cetirizine 10 mg tablet take 1 tablet by oral route every day 10 MG - Active Singulair 10 mg tablet take 1 tablet by oral route every day in the evening 10 MG - Active Ventolin HFA 90 mcg/actuation aerosol inhaler inhale 2 puff by inhalation route every 4 - 6 hours as needed as needed - Active PRN for sob Procedures Procedure Date OFFICE/OUTPATIENT VISIT, EST OFFICE/OUTPATIENT VISIT, EST OFFICE/OUTPATIENT VISIT, EST OFFICE/OUTPATIENT VISIT, EST PREV VISIT, NEW, AGE 40-64 Advance Directives Directive Yes / No Effective Date File Name No Information Encounters Encounter Description Practice Location Reason(s) For Visit Diagnoses Date Provider Providers Copied on Encounter OFFICE/OUTPA TIENT VISIT, [facility], [address], [place], [place], [id number], [place] tel:[phone] [facility] hypothyroi dism1 (chief complaint) GERD1 (chief complaint) LFT (chief complaint) HypothyroidismLiver diseaseGERD w/o esophagitis 2 Abdulaziz Dodson. [address], [place], [place], [id number] , [place]. tel:[phone] OFFICE/OUTPA TIENT VISIT, [facility], [address] [place], [id number], [place] tel:[phone] [facility] hypothyroi dism1 (chief complaint) hematuria1 (chief complaint) LFT (chief complaint) GERD1 (chief complaint) Liver diseaseHypothyroidi smHematuriaProteinu riaGERD w/o esophagitis 2 Abdulaziz Dodson. [address], [address], [place], [place], [address] , [place]. [phone] OFFICE/OUTPA TIENT VISIT, [facility], [address] [place], [place], [address], [place] tel:[phone] [facility] eczema1 (chief complaint) osteopenia 1 (chief complaint) GERD1 (chief complaint) knee pani1 (chief complaint) Other specified disorder of bone densityEczemaGERD w/o esophagitisBilatera l primary osteoarthritis of knee 2 Abdulaziz Dodson. [address], [place], [place], [id number] , [place]. [phone] OFFICE/OUTPA TIENT VISIT, [facility], [address] [place], [address], [place] tel:[phone] [facility] COPD1 (chief complaint) allergy1 (chief complaint) GERD1 (chief complaint) colon polyp1 (chief complaint) Allergic rhinitisEmphysemaPo lyp of colonGERD w/o esophagitisBilatera l primary osteoarthritis of knee 1 Abdulaziz Huff [address], [place], [place], [address] , [place]. [phone] PREV VISIT, NEW, AGE 40-64 [facility], [address], [place], [place], [id number], [place] tel:[phone] [facility] Physical (chief complaint) Encounter for general adult medical examination without abnormal findings 1 Abdulaziz Dodson. [address], [place], [place], [address] , [place]. [phone] Family History Family Member Type Diagnosis Age At Onset Brother Problem Alive and well Mother Problem of COPD 70 due to smoki ng Father Problem of dementia at age of 8 1 Payers Payer name Insurance type Covered republican ID Authoriza tion(s) No Information Social History Type Description Quantity Date Captured Comments Alcohol Use Details beer & wine Caffeine Use Details Unknown Tobacco Use Status Current non-smoker Smoking Status Never smoker Sex Female Vital Signs Date / Time: Height Weight BMI Pulse Rate Blood Pressure Temperature Respiratory Rate Body Surface Area Head Circumference BMI percentile Pulse Ox Inhaled Ox 11:35 AM 61.00 in 185.00 lbs 34.9 6 kg/m eter (2) 80 /min 133/97 mm[Hg] 98.1 F 18 /min Chief Complaint And Reason For Visit From encounter dated '12/11/2021 11:34'. hypothyroidism1 (chief complaint). Description: Pt has borderline low thyroid and high thyroglobulin. Pt denies any fatigue or weight gain Pt denies any dysphagia or neck pain GERD1 (chief complaint). Description: Pt has chronic GERD. Pt had benign egd. Pt needs protonix refilled pt failed pepcid LFT (chief complaint). Description: Pt has history of high LFT pt denies any abd pain or jaundice. pt had repeat LFT which was normal. Pt had liver ultrasound done which showed benign cyst only Plan Of Treatment Date Type Action Status Referral Ordered: US THYROID ordered Referral Ordered: US EXAM, ABDOM, COMPLETE ordered Referral Ordered: Venkatesh Triplett MD -Allopathic & Osteopathic Physicians : Obstetrics & Gynecology (related to Encounter for general adult medical examination without abnormal findings) ordered Referral Ordered: DXA BONE DENSITY, AXIAL ordered Referral [place]: [place] [id number] [facility]
[address] [place], [place], [id number] Ordered: Referrals: Lin Morgan MD. Evaluate and treat ordered Referral Referred To: Venkatesh Triplett MD Ordered: Referrals: Allopathic & Osteopathic Physicians : Obstetrics & Gynecology. Venkatesh Triplett MD. Evaluate and treat ordered Referral Referred To: Ricky Mclaughlin Ordered: Referrals: Ricky Mclaughlin. Evaluate and treat ordered History Of Present Illness Encounter Date Complaint History Of Prese nt Illness hypothyroidism1 Pt has borderlin e low thyroid and high thyroglobulin. Pt denies any fatigue or weight gain Pt denies any dysphagia or neck pain GERD1 Pt has chronic G ERD. Pt had benign egd. Pt needs protonix refilled pt failed pepcid LFT Pt has history o f high LFT pt denies any abd pain or jaundice. pt had repeat LFT which was normal. Pt had liver ultrasound done which showed benign cyst only hypothyroidism1 Pt has low thyro id Pt denies any dysphagia or neck. Pt denies any dysphagia or neck pain. Pt denies any fatigue or weight gain hematuria1 Pt has hematuria an proteinuria Pt denies any urinary symptoms. Pt denies any spotting Pt has IUD. Pt noticed mild spotting two months ago Pt denies any pelvic pain LFT Pt has borderlin e high LFT pt denies any abp pain or jaundice. Pt drinks small amount of beer and sometimes hard liquor 2-3 per week GERD1 Pt has chronic G ERD Pt had benign EGD pt states that pepcid does not work as well as protonix and she still has GERD frequently Pt denies any abd pain, weight loss, nausea, vomiting osteopenia1 Pt had bone dens ity which showed osteopenia Pt denies any history of fracture GERD1 Pt has chronic G ERD Pt tolerating pepcid ok Pt denies any abd pain. She denies any nausea, vomiting, loss of appetite knee pani1 Pt has chronic b ilateral knee pain Pt saw ortho and she supposes to get hyalgan injection but she has not heard from ortho for a while. Pt denies any knee redness or warmth. Pt has normal ROM eczema1 Pt c/o bilateral hand redness, itching and pain and skin cracking for one month. Pt cleans a lot with bleach without wearing gloves. COPD pt has COPD Pt u ses serevent daily and she rarely needs to use albuterol. Pt denies any hemoptysis, worsening sob or cough. pt has leanne with pulmonary in July of next year allergy1 Pt has sinus all ergy. Pt takes singulair and zyrtec and doing ok Pt needs refilled. GERD Pt has chronic G ERD. Pt takes protonix daily. Pt had EGD last year which showed gastritis only. Pt never tried pepcid. Pt doing ok with protonix colon polyp1 Pt had colonosco py done 2018 which showed sessile polyp .Pt has history of tubular adenoma in the past and she was doing colonoscopy every 3 years but after the last colonoscopy from , she was told to repeat in 5 years Physical Pt needs annual physical Pt has COPD. Pt takes serevent and ventolin PRn and she rarely uses albuterol. Pt never smoked. Pt dd have 2nd hand exposure Pt denies hemoptysis. Pt not sure why she has emphysema since she never smoked. Pt has chronic GERD Pt takes protonix daily for more than 3 years Pt states that she has daily GERD without protonix. Pt had EGD and colonoscopy done 1-2 years ago and she told me EGD was ok and colonoscopy was ok too. Pt apparently has some polyp and she supposes to do colonoscopy every 3 years but she was told to do colonoscopy in 5 years after last colonoscopy 1-2 years ago Pt does have some intermittent non bloody diarrhea due to IBS. Pt takes loperamide and colestipol PRN. Pt denies any abd pain or weight loss Pt denies any blood in stool. Pt has chronic bilateral knee pain and she has been getting injection by ortho and she needs referral to new ortho now. Pt denies any other complaints Instructions Date Instruction Additional Infor rios No Information Assessments Type Assessment Date assessment Hypothyroidism assessment Liver disease assessment GERD w/o esophagitis Mental Status Date Cognitive Assessment Orientation - [place] ed to time, place, person, situation.
--- OUTSIDE RECORDS SUMMARY | 2024-11-04 07:49 | XMS_ITS | Data Portability ---
Author Organization [facility] Address [address] [place] [address] [place] [address] Care Team Providers Care Tightening Machine Operator Name Role Phone ANGEL FAROOQ Primary Care Provider Assessment Encounter Date Assessment Date Assessment LastModified by Organization Details LastModified Time 11/27/2022 11/27/2022 Annual gynecological exam performed. Patient will come back in a year unless there are new symptoms. [email or web address] Not available 11/27/2022 10:51:46 03/23/2024 03/23/2024 Annual [...] is positive need subtypin g 16,18/45 2023 [facility] (Lab), [address], [place], [address], 4 08:51:07 Referral None recorded . Procedures None recorded . Surgeries None recorded . Imaging MAMMO, screenin g, digital, bilatera l [address] [facility], [address], [address], [place], [address], 5 05:01:36 US, pelvis 2022 023 [email or web address] [facility], [address], [place], [address], 21:30:13 US, transvag inal 2022 023 [email or web address] [facility], [address], [place], [address], 21:30:13 US, pelvis, complete 2022 023 [email or web address] [facility], [address], [place], [address], 14:58:13 MAMMO, screenin g, digital, bilatera l 2022 023 DONY [facility], [address], [place], [address], 13:46:02 Medication Orders None recorded . Patient TargetsNo targets recorded. Patient InstructionsNo instructions recorded. Reason for Referral None Reported. Results Created Date Observation Date Name Description Value Unit Range Abnormal Flag Note LastModifiedBy Organization Detail LastModifiedTime 11/28/19 23 11/27/2022 IMAGE GUIDE D PAP AND HPV REGAR DLESS image guided Pap, HPV regardless of Pap result SEE RESULT S BELOW CASE REPOR T: Cytol ogy Gynec ologi delon Repor t Case: [id number] Autho estefania lyon Provi lolita: Jessica Sanz, PHOTO RETOUCHER Colle cted: 11/27 1128 Order ing Locat [...] as clini aileen chaudhry nted. Not Available [facility] (Lab) [address], [place], [address], 11/28/2022 15:21:40 11/28/19 23 11/27/2022 MAMMO , scree delvin, digit al, bilat eral No observ ation record ed. [address], [place], [address], 11/27/2022 14:49:21 11/29/19 23 11/28/2022 US, pelvi s No observ ation record ed. [email or web address] [facility] [address], [place], [address], 11/28/2022 12:06:53 11/29/19 23 11/28/2022 US, trans vagin al No observ ation record ed. [email or web address] [facility] [address], [place], [address], 11/28/2022 12:05:51 11/29/19 23 11/28/2022 US, pelvi s No observ ation record ed. [address], [facility], [place], [address], 12/03/2022 11:57:08 12/01/19 23 11/27/2022 MAMMO , scree delvin, digit al, bilat eral No observ ation record ed. [facility] [address], [place], [address], 12/02/2022 10:46:14 12/21/19 23 11/27/2022 MAMMO , scree delvin, digit al, bilat eral No observ ation record ed. [email or web address] [facility] [address], [place], [address], 12/23/2022 14:27:14 12/22/19 23 11/27/2022 MAMMO , richard hargrove, digit al, bilat eral No observ ation record ed. [email or web address] [facility] [address], [place], [address], 12/23/2022 14:27:15 Result Notes None recorded. Procedures Surgical History Date Name Laterality Status Provider Name and Address Organization Details Recorded Time 023 total knee replacement completed Jackeline Farah [facility] 03/23/2024 10:53:15 023 Date of Last Mammogram completed [facility] 03/12/2024 15:23:54 023 Date of Last Pap Smear completed [facility] 03/12/2024 15:23:13 022 IUD Removal completed Venkatesh Triplett MD [address], [place], [address], [facility] 08/13/2021 11:02:07 [address] [facility] 08/13/2021 10:14:[address] [facility] 08/13/2021 10:14:29 Imaging Results None recorded. Procedure Notes None recorded. Medical Equipment None [...] Updated DateTime 08/13/2021 154.94 cm 33.8 kg/m2 01966.03 g 135 mm[Hg] 88 mm[Hg] Sarina Sarah [facility] 2 10:25:53 Date Recorded Body height Body mass index (BMI) Body weight Systolic blood pressure Diastolic blood pressure Provider Name and Address Organization Details Last Updated DateTime 11/27/2022 154.94 cm 36.1 kg/m2 51626.14 g 130 mm[Hg] 83 mm[Hg] [facility] 3 10:52:09 Date Recorded Body height Body mass index (BMI) Body weight Systolic blood pressure Diastolic blood pressure Provider Name and Address Organization Details Last Updated DateTime 12/03/2022 154.94 cm 36.1 kg/m2 05096.14 g 133 mm[Hg] 83 mm[Hg] [facility] 3 10:22:40 Date Recorded Body height Body mass index (BMI) Body weight Systolic blood pressure Diastolic blood pressure Provider Name and Address Organization Details Last Updated DateTime 03/23/2024 154.94 cm 35.9 kg/m2 64367.55 g 122 mm[Hg] 85 mm[Hg] Jackeline Farah [facility] 4 10:49:39 Social History Question Answer Notes LastModified by [employer] Details LastModified Time Tobacco Smoking Status Never Smoker Sarina chung, [facility] 08/13/2021 10:12:48 Are You Blind Or Do You Have Difficulty Seeing? No Information not available 11/27/2022 Are You Deaf Or Do You Have Serious Difficulty Hearing? No Information not available 11/27/2022 Do You Have Difficulty Walking Or Climbing Stairs? No Information not available 11/27/2022 Sex: Unknown Functional Status Question Answer Note LastModified by [employer] Details LastModified Time Are you able to walk? YESWOREST Information [...] Not available 2021 10:12:24 Paternal Grandmother Malignant neoplasm of ovary [email or web address] Not available 2021 10:27:15 [...] SNOMED-CT Code Diagnosis ICD10 Code Diagnosis Note [id number] Venkatesh Triplett MD [facility] [address] [address] 08/13/2021 09:53:40 08/13/2021 11:03:18 Contraception care management 641990517 Z30.9 This patient is a 56-year-ol d female presents for IUD removal. She also has some questions about hormone replacemen t therapy. She has a history of a DVT on oral contracept daryn pills. We agreed not to consider any hormones. She has no menopausal symptoms. She tolerated IUD removal well [id number] DIMPLE Shook [facility] [address] [address] 11/27/2022 10:38:03 11/27/2022 11:19:41 Screening for malignant neoplasm of breast 682563965 Z12.39 Gynecologi c examination 08710563 Z01.419 Take Calcium with Vitamin D 12-1500mg daily. Do monthly self breast exams. It is advised to get annual flu shot in the fall and she could obtain at [facility] or [facility] care clinic. If you haven't received the Tdap [...] have been answered. Patient appears to understand longio ns, but if you have any further [...] of plan of care. Postmenopa usal bleeding 67165324 N95.0 [id number] Venkatesh Triplett MD [facility] [address],[facility] [place] [address] 11/28/2022 10:50:41 11/28/2022 11:41:07 Postmenopausal bleeding 53469521 N95.0 [id number] DIMPLE Shook [facility] [address],[place] [address] 12/03/2022 10:13:30 12/03/2022 12:07:41 Vulval irritation 282012777 N90.89 Reviewed updated TVUSendome trium 4.5 MMspotting [...] counseling and review of plan of care. [id number] Venkatesh Triplett MD [facility] [address],[facility] [place] [address] 03/23/2024 10:13:56 03/23/2024 11:25:16 Gynecologic examination 42651525 Z01.419 Annual gynecologi delon exam performed. Patient [...] requests order today, instructed pt to call [facility] and get scheduled. colon cancer screening - DUE (last 2018, q 5 yrs) - PCP sent GI referral DEXA scan- PCP Pap smear- Pap w/ HPV collected per pt request. laboratory evaluation - PCP STI testing - declined Screening mammography 24 244751 Z12.31 Pt to call and schedule annual mammogram. Health Concerns Section Related Observation LastModified by Organization Detai ls LastModified Time None Recorded Concern Status LastModified by Organization Details LastModified Time None Recorded Advance Directives Directive None Recorded Payers Insurance Date Sequence Insurance Name Policy Number Policy Kay Covered Member ID Kay Member ID Guarantor Name 03/29/2024 1 [employer] () Larry Tyler [id number] Sierra Scott Notes Date Note Type Note [...] well Venkatesh Triplett MD [address], [place], [address], [facility] 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 11/27/2022 11:16:09 12/03/2022 text/html 57yopresents for pelvic u/s f/upostmenopausal x 1 yearu/s done due to spotting episode that happened 1-2 times when wiping per patient. She thinks it was due to vulvar irritation bc she has itching and irritation when this occurred. DIMPLE Shook [address], [place], [address], [facility] 12/03/2022 11:56:45 03/23/2024 text/html Annual GYNReport [...] abnormal bleeding or menopausal symptoms. Britney chung, [facility] 03/23/2024 11:27:30 OBGyn Episode Ob Episode Information Episode Created Date Number of Fetuses Patient Bloodtype Patient rh Status Prepregnancy Weight lbs Domestic Partner Domestic Partner Phone Father Name Loader Helper Sorting Yard Status 08/14/19 22 1 CLOSED Fetus Data First Name Last Name Admitted to NICU Weight (g) Sex Living Outcome Pediatric Complications Fetus ID Race Codes Race Delivery Type 3628.73 6 M Full Term [id number] Primary Joni Calculation Initial Joni Date Initial [...]
== END 2024-11-04 07:46 | disposition home or self-care (01) ==
LOC: ANHIMG 07:46
PROVIDERS: PCP Family Medicine; Visit Provider Family Medicine
DX: M85.89 Other specified disorders of bone density and structure, multiple sites (principal); Z78.0 Asymptomatic menopausal state; Z13.820 Encounter for screening for osteoporosis
CPT/HCPCS: 77080